=== PATIENT | male | born 1955 | race Caucasian/White ===

== ENCOUNTER 2020-08-09 10:39 | Inpatient (IN) | payer MEDICARE ==
[~2020-08-09] VITALS: Ht 177.8 cm; Wt 110.5 kg
[2020-08-09 12:55] LABS: Basophils # (auto) 0 10 ^3/uL (0-0.2); Basophils % (auto) 0.3 % (0.0-2.0); Eosinophils # (auto) 0 10 ^3/uL (0-0.8); Eosinophils % (auto) 0.2 % (0.0-7.0); Hematocrit 51.3 % (41.0-53.0); Hemoglobin 17.4 g/dL (13.5-17.5); Lymphocytes # (auto) 0.5 10 ^3/uL (0.4-5.4); Lymphocytes % (auto) 8.5 % (10.0-50.0); Mean Corpuscular Hemoglobin 31.3 pg (28.0-32.0); Mean Corpuscular Hgb Conc. 33.9 g/dL (32.0-36.0); Mean Corpuscular Volume 92.4 fL (80.0-100.0); Monocytes # (auto) 0.6 10 ^3/uL (0-1.3); Neutrophils # (auto) 4.5 10 ^3/uL (1.6-8.6); Nucleated Red Blood Cells % 0.4 %; Platelet Count (auto) 275 10^3/uL (140-450); Red Blood Cells 5.55 10^6/uL (4.5-5.90); White Blood Cell 5.6 10^3/uL (4.4-10.8)
[2020-08-09 13:12] LABS: Alanine Aminotransferase 69 U/L (16-61); Albumin 2.4 g/dL (3.4-5.0); Anion Gap 6 (5-15); Aspartate Aminotransferase 74 U/L (15-37); Blood Urea Nitrogen 30 mg/dL (7-18); Calcium 8.5 mg/dL (8.5-10.1); Carbon Dioxide 25 mmol/L (21-32); Chloride 104 mmol/L (98-107); GFR African American 53 mL/min; GFR Non-African American 44 mL/min; Glucose 102 mg/dL (74-106); Lipase 187 U/L (73-393); Potassium 4.2 mmol/L (3.5-5.1); Sodium 135 mmol/L (136-145)
[2020-08-09 13:17] LABS: Alkaline Phosphatase 77 U/L (45-117); Bilirubin, Total 0.5 mg/dL (0.2-1.0); Total Protein 7.3 g/dL (6.4-8.2)
[2020-08-09] MEDS ORDERED: NITROGLYCERIN 0.4 MG SL TAB SL PRN (17:00)
[2020-08-09] MEDS ORDERED: HYDROcodone-ACET 5/325MG TAB PO PRN (17:00)
[2020-08-09] MEDS ORDERED: ONDANSETRON HCL 4 MG/2 ML VIAL IV PRN (17:00)
[2020-08-09] MEDS ORDERED: ACETAMINOPHEN 500 MG TAB PO PRN ×2 (17:00)
[2020-08-09] MEDS ORDERED: ALBUTEROL SULF HFA 90MCG INH 200DOSE IN PRN (17:00)
[2020-08-09] MEDS ORDERED: REMDESIVIR PER PHARMACY 0 ML IV SCH (17:00)
[2020-08-09] MEDS ORDERED: MORPHINE SULF INJ 2 MG/ML SYRINGE 1ML IV PRN ×2 (17:00)
[2020-08-09] MEDS ORDERED: PANTOPRAZOLE 40 MG/10 ML VIAL INJ IV ONE (17:30)
[2020-08-09] MEDS: SODIUM CHLORIDE 0.9% 1,000 ML IV SCH (17:30)
[2020-08-09 18:32] LABS: CRP High Sensitivity 7.33 mg/dL (< 0.3)
[2020-08-09] MEDS ORDERED: CARV3.1240 PO (18:58)
--- NOTE | 2020-08-09 20:14 | NUR ---
Respiratory note: RESP MED HELD AT THIS TIME ,WAITING FOR COVID RESULT
[2020-08-09] MEDS: BUDESONIDE (INHALATION) 180 MCG IH IN SCH (21:11)
[2020-08-09] MEDS: cefTRIAXone 1GM/50ML D5W 50 ML IV SCH (23:49)
[2020-08-09] MEDS: SUCRALFATE 1 GM/10 ML ORAL SUSP PO SCH (23:49)
[2020-08-09] MEDS: CARVEDILOL 3.125 MG TAB PO SCH (23:50)
[2020-08-09] MEDS: ENOXAPARIN SOD 40 MG/0.4 ML SYRINGE SC SCH (23:50)
[2020-08-10 02:30] LABS: Urine Bacteria FEW /hpf (None Seen); Urine Blood TRACE /uL (Negative); Urine Hyaline Cast MANY /lpf (0 - 2); Urine Mucus FEW (None Seen); Urine WBC 8 /hpf (0 - 3)
[2020-08-10] MEDS: SODIUM CHLORIDE 0.9% 1,000 ML IV SCH (03:00)
[2020-08-10 04:49] VITALS: BP 105/64
[2020-08-10] MEDS: SUCRALFATE 1 GM/10 ML ORAL SUSP PO SCH ×4 (06:37→22:23)
--- NOTE | 2020-08-10 07:30 | NUR ---
ROUNDS PT SITTING IN BED AWAKE A&O. RESPIRATIONS EQUAL AND UNLABORED. PT ON 3LNC. PT C/O PAIN TO UPPER ABD, REQUESTING NO MEDICATION. PT REQUESTING TO BE LOCKED FORM IV AND AMBULATED INDEPENDENTLY TO RESTROOM. WILL CONTINUE TO MONITOR
[2020-08-10 08:32] LABS: Basophils # (auto) 0 10 ^3/uL (0-0.2); Basophils % (auto) 0.3 % (0.0-2.0); Eosinophils # (auto) 0 10 ^3/uL (0-0.8); Hematocrit 45.4 % (41.0-53.0); Hemoglobin 15.2 g/dL (13.5-17.5); Lymphocytes # (auto) 0.7 10 ^3/uL (0.4-5.4); Lymphocytes % (auto) 15.9 % (10.0-50.0); Mean Corpuscular Hemoglobin 30.9 pg (28.0-32.0); Mean Corpuscular Hgb Conc. 33.5 g/dL (32.0-36.0); Mean Corpuscular Volume 92.1 fL (80.0-100.0); Monocytes # (auto) 0.7 10 ^3/uL (0-1.3); Monocytes % (auto) 16.4 % (0.0-12.0); Neutrophils # (auto) 2.9 10 ^3/uL (1.6-8.6); Neutrophils % (auto) 66.4 % (37.0-80.0); Nucleated Red Blood Cells % 0.1 %; Platelet Count (auto) 241 10^3/uL (140-450); Red Blood Cells 4.93 10^6/uL (4.5-5.90); Red Cell Distribution Width 13.9 % (11.8-14.3); White Blood Cell 4.4 10^3/uL (4.4-10.8)
[2020-08-10 08:57] LABS: Albumin 2.1 g/dL (3.4-5.0); BUN/Creatinine Ratio 23.9; Calcium 8.4 mg/dL (8.5-10.1); Potassium 3.9 mmol/L (3.5-5.1)
[2020-08-10 08:59] LABS: Bilirubin, Total 0.4 mg/dL (0.2-1.0); Total Protein 6.2 g/dL (6.4-8.2)
[2020-08-10 09:00] VITALS: BP 116/74
[2020-08-10] MEDS ORDERED: AZITHROMYCIN 500MG/D5WorNS 250ml IV SCH (10:00)
[2020-08-10] MEDS ORDERED: FAMOTIDINE 20 MG TAB PO SCH (10:00)
[2020-08-10] MEDS: BUDESONIDE (INHALATION) 180 MCG IH IN SCH ×2 (10:00→22:00)
[2020-08-10] MEDS: CARVEDILOL 3.125 MG TAB PO SCH ×2 (10:00→22:23)
[2020-08-10] MEDS: CHOLECALCIFEROL (VITD3) 2,000 UNIT CAP PO SCH (10:00)
[2020-08-10] MEDS: DexAMETHasone SOD PHOS 10MG/1ML VIAL INJ IV SCH (10:00)
--- NOTE | 2020-08-10 10:30 | NUR ---
DR BARRIENTOS AT BEDSIDE
[2020-08-10] MEDS: ZINC SULFATE 220mg CAP or TAB PO SCH (10:54)
[2020-08-10] MEDS: ASCORBIC ACID 1,000 MG TAB PO SCH (10:54)
[2020-08-10] MEDS: PANTOPRAZOLE 40 MG/10 ML VIAL INJ IV SCH (10:54)
[2020-08-10] MEDS: cefTRIAXone 1GM/50ML D5W 50 ML IV SCH (10:55)
--- NOTE | 2020-08-10 12:08 | NUR ---
DR BLANKENSHIP CALLED TO ASSESS PT STATES SHE WILL FOLLOW UP WITH PT OUT PT AFTER COVID SUBSIDES.
[2020-08-10 13:00] VITALS: BP 122/76
[2020-08-10] MEDS ORDERED: REMDESIVIR 200 MG in NS 210ml LOADING DOSE ADULT IV ONE (15:00)
[2020-08-10] MEDS ORDERED: ENOXAPARIN SOD 60 MG/0.6 ML SYRINGE SC ONE (15:45)
[2020-08-10] MEDS: AZITHROMYCIN 250 MG TAB PO SCH (16:07)
[2020-08-10] MEDS: ENOXAPARIN SOD 40 MG/0.4 ML SYRINGE SC SCH ×2 (16:08→22:23)
--- NOTE | 2020-08-10 16:20 | NUR ---
BLOOD PRESSURE PRE REMDESIVIR INFUSION AT 1600 141/81 BLOOD PRESSURE AT 1620 147/86
[2020-08-10 17:00] VITALS: BP 132/84
--- NOTE | 2020-08-10 17:24 | NUR ---
PT REQUEST TO HOLD OFF ON PLASMA INFUSION UNTIL HE CAN SPEAK TO THE DOCTOR TOMORROW REGARDING COVERAGE. PT NOT WANTING TO INCUR EXTREME COST AND THIS RN UNABLE TO VALIDATE COVERAGE OR COSTS. WILL NOTIFY BLOOD BANK TO NOT THAW AT THIS TIME.
--- NOTE | 2020-08-10 18:30 | NUR ---
PT ON THE PHONE WITH FAMILY
--- NOTE | 2020-08-10 20:12 | NUR ---
STATUS PT RESTING WITH EYES CLOSED, RESPIRATIONS EQUAL AND UNLABORED ON 3L NC, WITH SATURATIONS IN MID 90S. WILL CONTINUE TO MONITOR
[2020-08-10 22:00] VITALS: BP_SYST 135; BP_SYST 139; BP_DIAS 80; BP_DIAS 87
--- NOTE | 2020-08-11 03:20 | NUR ---
REPORT GIVEN TO SLIME GRACE FOR CONTINUED POC
--- NOTE | 2020-08-11 03:20 | NUR ---
ASSUMED CARE OF PATIENT REPORT RECEIVED FROM LESLY BOONE. PATIENT CURRENTLY RESTING WITH EVEN RESPIRATIONS AND NO SIGNS OF DISTRESS NOTED AT THIS TIME. BED IN LOWEST POSITION WITH SIDERAILS UP X2 AND BED LOCKED WITH CALL LIGHT IN REACH.
[2020-08-11 05:00] VITALS: BP 143/90
--- NOTE | 2020-08-11 07:00 | NUR ---
Opening Shift Note Assumed care of patient, awake and alert. Patient is on 3L of O2 via nasal cannula and saturating at 96%. Left AC 18 G IV clean, dry, and patent with no signs of swelling or redness. No S/S of distress or pain. Instructed on POC and to call for assist PRN, will continue to monitor for changes Q1hr and PRN.
[2020-08-11] MEDS: SUCRALFATE 1 GM/10 ML ORAL SUSP PO SCH ×4 (07:06→22:05)
[2020-08-11 09:00] VITALS: BP 144/89
[2020-08-11] MEDS: PANTOPRAZOLE 40 MG/10 ML VIAL INJ IV SCH (09:17)
[2020-08-11] MEDS: ENOXAPARIN SOD 40 MG/0.4 ML SYRINGE SC SCH ×2 (09:17→22:05)
[2020-08-11] MEDS: cefTRIAXone 1GM/50ML D5W 50 ML IV SCH (09:17)
[2020-08-11] MEDS: ASCORBIC ACID 1,000 MG TAB PO SCH (09:18)
[2020-08-11] MEDS: CHOLECALCIFEROL (VITD3) 2,000 UNIT CAP PO SCH (09:18)
[2020-08-11] MEDS: AZITHROMYCIN 250 MG TAB PO SCH (09:18)
[2020-08-11] MEDS: CARVEDILOL 3.125 MG TAB PO SCH ×2 (09:19→22:07)
[2020-08-11] MEDS: DexAMETHasone SOD PHOS 10MG/1ML VIAL INJ IV SCH (09:19)
[2020-08-11] MEDS: ZINC SULFATE 220mg CAP or TAB PO SCH (09:19)
[2020-08-11 10:37] LABS: Albumin 2.1 g/dL (3.4-5.0); Potassium 4.1 mmol/L (3.5-5.1)
[2020-08-11 10:43] LABS: BUN/Creatinine Ratio 21.7; Bilirubin, Total 0.4 mg/dL (0.2-1.0); Total Protein 6.5 g/dL (6.4-8.2)
[2020-08-11 11:12] LABS: Hepatitis B Surface Antibody Negative
[2020-08-11 11:49] LABS: Hepatitis A Total Antibody Negative
--- NOTE | 2020-08-11 11:50 | NUR ---
DR. BARRIENTOS AT BEDSIDE MD at bedside. Reviewed plan of care with patient.
--- NOTE | 2020-08-11 11:58 | NUR ---
PATIENT REQUESTING TO KNOW LEDESMA OF PLASMA RN PLACED CALL TO BILLING AND SPOKE WITH MARY. ACCORDING TO MARY PATIENT WILL BE COVERED FOR PLASMA ADMINISTRATION FROM INSURANCE. PATIENT UPDATED ON COVERAGE. PATIENT STATES "OKAY THAT IS GOOD BUT I DONT THINK I WANT THE PLASMA" PATIENT EDUCATED ON BENEFITS OF PLASMA. PATIENT VERBALIZED UNDERSTANDING.
[2020-08-11 13:00] VITALS: BP 136/81
[2020-08-11 13:18] LABS: Hepatitis B Surface Antigen Negative (Negative)
[2020-08-11 13:21] LABS: Hepatitis C Antibody Negative (Negative)
[2020-08-11 13:23] LABS: Hepatitis B Core Total AB Negative
[2020-08-11] MEDS: REMDESIVIR 100 MG in SODIUM CHL 0.9% 250 ML IV SCH (15:45)
--- NOTE | 2020-08-11 16:10 | NUR ---
IV insertion IV access obtained, via clean sterile technique by inserting 20 gauge catheter at left wrist after 1 attempt(s). IV secured properly. No trauma to site. Patient tolerated well. IV removal IV DC'd with clean sterile technique, catheter fully intact. Pressure dressing applied to site. Patient tolerated well.
--- NOTE | 2020-08-11 16:30 | NUR ---
REMDESIVIR Pre Remdesivir vitals: HR: 72 o2: 97% RR: 16 T: 97.5 BP: 131/75 15 minute vitals HR: 66 O2: 97% RR: 16 T: 97.2 BP:127/84
[2020-08-11 17:00] VITALS: BP 127/84
[2020-08-11] MEDS ORDERED: FUROSEMIDE 40 MG TAB PO ONE (18:30)
--- NOTE | 2020-08-11 18:32 | NUR ---
POST REMDESIVIR VITALS HR: 73 O2: 96% RR:18 T: 98.6 BP: 129/80
--- NOTE | 2020-08-11 19:30 | NUR ---
Opening Shift Note Received report from jostin Rushing RN. Assumed care of patient, awake and alert. No S/S of distress but SOB with ambulation. On 3LNC saturating at 96%. Instructed on POC and to call for assist PRN, will continue to monitor for changes Q1hr and PRN. Bed placed in lowest position, and call light within reach.
[2020-08-11 21:27] VITALS: BP 127/72
[2020-08-11] MEDS: BUDESONIDE (INHALATION) 180 MCG IH IN SCH (21:59)
[2020-08-11] MEDS: DOXYCYCLINE 100 MG TAB/CAP PO SCH (22:06)
[2020-08-12 05:00] VITALS: BP 125/67
[2020-08-12] MEDS: SUCRALFATE 1 GM/10 ML ORAL SUSP PO SCH ×4 (06:19→22:35)
--- NOTE | 2020-08-12 07:01 | NUR ---
Patient is resting in bed alert and awake, no distress noted, on 3LNC saturating 98%. Patient denies pain.
[2020-08-12 08:00] VITALS: BP 112/69
--- NOTE | 2020-08-12 08:00 | NUR ---
Received pt resting in bed, call light within reach, no pain noticed or reported at this time, Influenza A and B done and sent to lab.
[2020-08-12 08:11] LABS: Potassium 4.1 mmol/L (3.5-5.1)
[2020-08-12 08:16] LABS: Albumin 2.1 g/dL (3.4-5.0); Calcium 8.9 mg/dL (8.5-10.1)
[2020-08-12 08:18] LABS: Bilirubin, Total 0.4 mg/dL (0.2-1.0); Total Protein 6.3 g/dL (6.4-8.2)
[2020-08-12] MEDS: PANTOPRAZOLE 40 MG/10 ML VIAL INJ IV SCH (09:26)
[2020-08-12] MEDS: DexAMETHasone SOD PHOS 10MG/1ML VIAL INJ IV SCH (09:26)
[2020-08-12] MEDS: cefTRIAXone 1GM/50ML D5W 50 ML IV SCH (09:26)
[2020-08-12] MEDS: ZINC SULFATE 220mg CAP or TAB PO SCH (09:26)
[2020-08-12] MEDS: AZITHROMYCIN 250 MG TAB PO SCH (09:27)
[2020-08-12] MEDS: DOXYCYCLINE 100 MG TAB/CAP PO SCH ×2 (09:27→22:38)
[2020-08-12] MEDS: ENOXAPARIN SOD 40 MG/0.4 ML SYRINGE SC SCH ×2 (09:27→22:39)
[2020-08-12] MEDS: ASCORBIC ACID 1,000 MG TAB PO SCH (09:27)
[2020-08-12] MEDS: CHOLECALCIFEROL (VITD3) 2,000 UNIT CAP PO SCH (09:27)
[2020-08-12] MEDS: FUROSEMIDE 40 MG TAB PO SCH (09:46)
[2020-08-12] MEDS: CARVEDILOL 3.125 MG TAB PO SCH ×2 (09:46→22:36)
[2020-08-12 12:00] VITALS: BP 127/80
--- NOTE | 2020-08-12 12:27 | NUR ---
Assessment Patient is a 64 year old male, who is alert and oriented. Patient cognitive abilities are intact. Patient stated that prior to being admitted to [facility], he can do all ADL's and ambulate independently. Patient stated that he lives with his Monty ([phone]), and he has plans to return home post discharge. Patient stated that he is retired and receives social security as income. Patient stated that his is his support system, patient stated that he will need transportation post discharge. Patient is receptive to receive Advance Directive forms. Discharge planning: Patient will return home post discharge, patient will follow up care with his PCP post discharge. SW will provide Advance Directive prior to discharge. There are no additional discharge needs to address at the moment. Addendum: 08/12/20 at 1235 by ANISH BACA Amended: Links added.
[2020-08-12] MEDS: REMDESIVIR 100 MG in SODIUM CHL 0.9% 250 ML IV SCH (15:37)
[2020-08-12 17:00] VITALS: BP 118/71
--- NOTE | 2020-08-12 17:12 | NUR ---
Remdesivir At 1530 started Remdesivir, v/s taken, BP 118/71, HR 70, at 1545 vs retaken, BP 128/81, BP 71, at 1645 medication treatment finished, v/s taken 131/82, BP 71, pt tolerated medication treatment well.
--- NOTE | 2020-08-12 19:25 | NUR ---
Opening Shift Note Received report from jostin Murguia RN. Assumed care of patient, awake and alert. No S/S of distress/SOB or pain. On 2LNC saturating at 95%. Instructed on POC and to call for assist PRN, will continue to monitor for changes Q1hr and PRN. Bed placed in lowest position and call light within reach.
--- NOTE | 2020-08-12 20:00 | NUR ---
Noted patient blowing into the incentive spirometer. Educated patient on how to use the instrument and demonstrated/verbalized understanding. Will monitor
[2020-08-12] MEDS: BUDESONIDE (INHALATION) 180 MCG IH IN SCH (21:30)
[2020-08-12 22:00] VITALS: BP 117/74
[2020-08-13] VITALS (7 sets, daily range): BP systolic 113–127; BP diastolic 64–87
--- NOTE | 2020-08-13 04:50 | NUR ---
Patient is resting in bed with eyes closed, no distress noted, on 2LNC saturating at 96%. Patient denies pain.
[2020-08-13] MEDS: SUCRALFATE 1 GM/10 ML ORAL SUSP PO SCH ×4 (06:44→22:12)
--- NOTE | 2020-08-13 07:00 | NUR ---
Opening Shift Note Assumed care of patient, awake and alert. Bed in lowest position side rails up x2 and call light within reach. Patient is on 2L of O2 via nasal cannula and saturating at 95%. Left wrist 20 G IV clean, dry, and patent with no signs of redness or swelling. No S/S of distress/SOB or pain. Instructed on POC and to call for assist PRN, will continue to monitor for changes Q1hr and PRN.
[2020-08-13] MEDS: cefTRIAXone 1GM/50ML D5W 50 ML IV SCH (08:43)
[2020-08-13] MEDS: ZINC SULFATE 220mg CAP or TAB PO SCH (08:43)
[2020-08-13] MEDS: ASCORBIC ACID 1,000 MG TAB PO SCH (08:44)
[2020-08-13] MEDS: AZITHROMYCIN 250 MG TAB PO SCH (08:45)
[2020-08-13] MEDS: CHOLECALCIFEROL (VITD3) 2,000 UNIT CAP PO SCH (08:45)
[2020-08-13] MEDS: CARVEDILOL 3.125 MG TAB PO SCH ×2 (08:46→22:13)
[2020-08-13] MEDS: FUROSEMIDE 40 MG TAB PO SCH (08:46)
[2020-08-13] MEDS: DOXYCYCLINE 100 MG TAB/CAP PO SCH ×2 (08:48→22:11)
[2020-08-13] MEDS: PANTOPRAZOLE 40 MG/10 ML VIAL INJ IV SCH (08:49)
[2020-08-13] MEDS: ENOXAPARIN SOD 40 MG/0.4 ML SYRINGE SC SCH ×2 (08:49→22:12)
[2020-08-13] MEDS: DexAMETHasone SOD PHOS 10MG/1ML VIAL INJ IV SCH (08:49)
[2020-08-13] MEDS: BUDESONIDE (INHALATION) 180 MCG IH IN SCH ×2 (10:00→22:00)
[2020-08-13 10:07] LABS: Albumin 2.5 g/dL (3.4-5.0); Calcium 9.2 mg/dL (8.5-10.1); Potassium 3.8 mmol/L (3.5-5.1)
[2020-08-13 10:10] LABS: BUN/Creatinine Ratio 20.2; Bilirubin, Total 0.5 mg/dL (0.2-1.0)
--- NOTE | 2020-08-13 12:05 | NUR ---
DR. BARRIENTOS AT BEDSIDE MD reviewed POC with patient. Received orders to titrate patient down to room air. Will assess patient's tolerance.
--- NOTE | 2020-08-13 14:48 | NUR ---
Nutrition Assessment Notes Please refer to link for full assessment notes. Est Energy needs: 3987-5196 kcals (14-18 kcal/kgBW) Est Protein needs: 112-123 gms/day (1.0-1.1 gm/kgBW) Will continue to monitor and reassess prn. Addendum: 08/13/20 at [address] Amended: Links added.
[2020-08-13] MEDS: REMDESIVIR 100 MG in SODIUM CHL 0.9% 250 ML IV SCH (15:44)
--- NOTE | 2020-08-13 16:00 | NUR ---
REMDESIVIR Pre Remdesivir vitals BP: 102/68 HR: 71 O2: 94% RA RR: 16 T: 98.8 15 minute vitals BP: 122/76 HR: 67 O2: 94% RA RR: 14 T: 98.3
--- NOTE | 2020-08-13 17:22 | NUR ---
POST REMDESIVIR VITALS BP: 124/73 HR: 70 O2: 92% RA RR: 18
--- NOTE | 2020-08-13 19:30 | NUR ---
Opening Shift Note Received report from jostin Rushing RN. Assumed care of patient, awake and alert resting in bed. On 2LNC saturating at 96%. No S/S of distress/SOB or pain. Instructed on POC and to call for assist PRN, will continue to monitor for changes Q1hr and PRN. Bed placed in lowest position and call light within reach.
--- NOTE | 2020-08-14 04:04 | NUR ---
Patient is resting in bed sleeping with eyes closed, no distress noted.
[2020-08-14 05:00] VITALS: BP 106/70
[2020-08-14] MEDS: SUCRALFATE 1 GM/10 ML ORAL SUSP PO SCH ×2 (06:42→11:44)
[2020-08-14] MEDS: DexAMETHasone SOD PHOS 10MG/1ML VIAL INJ IV SCH (08:54)
[2020-08-14] MEDS: cefTRIAXone 1GM/50ML D5W 50 ML IV SCH (08:54)
[2020-08-14] MEDS: ENOXAPARIN SOD 40 MG/0.4 ML SYRINGE SC SCH (08:54)
[2020-08-14] MEDS: PANTOPRAZOLE 40 MG/10 ML VIAL INJ IV SCH (08:55)
[2020-08-14] MEDS: CHOLECALCIFEROL (VITD3) 2,000 UNIT CAP PO SCH (08:55)
[2020-08-14] MEDS: AZITHROMYCIN 250 MG TAB PO SCH (08:56)
[2020-08-14] MEDS: ZINC SULFATE 220mg CAP or TAB PO SCH (08:57)
[2020-08-14] MEDS: FUROSEMIDE 40 MG TAB PO SCH (08:57)
[2020-08-14] MEDS: ASCORBIC ACID 1,000 MG TAB PO SCH (08:57)
[2020-08-14] MEDS: DOXYCYCLINE 100 MG TAB/CAP PO SCH (08:58)
[2020-08-14] MEDS: CARVEDILOL 3.125 MG TAB PO SCH (08:59)
[2020-08-14 09:00] VITALS: BP 132/80
[2020-08-14] MEDS: BUDESONIDE (INHALATION) 180 MCG IH IN SCH (10:00)
--- NOTE | 2020-08-14 10:59 | NUR ---
Opening Shift Note Assumed care of patient, awake and alert. Patient is on room air and saturating at 95%. Bed in lowest position, side rails up x2, and call light within reach. Left wrist 20 G IV clean, dry, and patent with no signs of redness or swelling. No S/S of distress/SOB or pain. Instructed on POC and to call for assist PRN, will continue to monitor for changes Q1hr and PRN.
--- NOTE | 2020-08-14 12:05 | NUR ---
AT BEDSIDE. at bedside. Reviewed plan of care with patient. No new orders received at this time.
[2020-08-14] MEDS ORDERED: METH4PAK PO (12:51)
[2020-08-14] MEDS ORDERED: PANT40TA2 PO (12:52)
[2020-08-14] MEDS ORDERED: DOXY-111 PO (12:52)
[2020-08-14] MEDS ORDERED: CHOL20007 PO (12:53)
[2020-08-14 13:00] VITALS: BP 116/65
[2020-08-14 14:29] VITALS: BP 116/65
[2020-08-14] MEDS: REMDESIVIR 100 MG in SODIUM CHL 0.9% 250 ML IV SCH (15:00)
--- NOTE | 2020-08-14 16:58 | NUR ---
Discharge instructions given as ordered. Encourage to follow up with PMD as instructed. All questions and concerns addressed. Patient verbalized understanding. Medication reconciliation form completed and copy given to patient. IV removed with catheter intact, pressure dressing applied, Telemetry unit returned to ICU. Patient taken to vehicle via wheelchair with all personal belongings, COVID protocol initiated accompanied by staff and family member. No distress noted at time of departure.
== END 2020-08-14 16:56 | disposition home or self-care (01) | DRG 871 ==
LOC: ER 10:39 → EDBD 10:39 → TELE 17:05 → TELE-EAST 08-10 04:04
PROVIDERS: ADMIT Nurse Practitioner Acute Care; ATTEND Internal Medicine Nephrology
PROC: XW033E5 Introduction of Remdesivir Anti-infective into Peripheral Vein, Percutaneous Approach, New Technology Group 5 (ICD-10-PCS; principal; 2020-08-10)
DX: A41.89 Other specified sepsis (principal); U07.1 COVID-19; J12.89 Other viral pneumonia; N17.0 Acute kidney failure with tubular necrosis; J96.01 Acute respiratory failure with hypoxia; D68.59 Other primary thrombophilia; R65.20 Severe sepsis without septic shock; E88.09 Other disorders of plasma-protein metabolism, not elsewhere classified; E86.0 Dehydration; I25.10 Atherosclerotic heart disease of native coronary artery without angina pectoris; E66.9 Obesity, unspecified; N18.30 Chronic kidney disease, stage 3 unspecified; I71.4 Abdominal aortic aneurysm, without rupture; I12.9 Hypertensive chronic kidney disease with stage 1 through stage 4 chronic kidney disease, or unspecified chronic kidney disease; Z95.5 Presence of coronary angioplasty implant and graft; Z68.35 Body mass index [BMI] 35.0-35.9, adult
CPT/HCPCS: 36415; 71045; 74176; 80053; 81001; 82728; 83615; 83690; 83735; 83880; 84484; 85025; 85379; 86141; 86704; 86706; 86708; 86803; 86850; 86900; 86901; 87040; 87340; 87426; 87804; 94640; C9113; G0378; J0696; J1100

== ENCOUNTER 2025-04-11 17:19 | Inpatient (IN) | payer MEDICARE, OTHER ==
[~2025-04-11] VITALS: Ht 172.7 cm; Wt 90.8 kg
[~2025-04-11 17:19] MED LIST: CARV3.1240 PO; CHOL20007 PO; DOXY-111 PO; METH4PAK PO; PANT40TA2 PO
--- NOTE | 2025-04-11 18:07 | ECG ---
[facility] Test Date: 2025-04-11 Test Time: 17:21:24 Pat Name: RACHAEL JOHNSON Department: [facility] ED Patient ID: [facility]-[id number] Room: 0287T Gender: M Single Needle Operator: MASSIEL : 1955 Requested By: BALA SLOAN Order Number: [id number] Reading MD: Jenaro Robledo Measurements Intervals [place] Rate: 82 P: 66 MA: 144 QRS: 31 QRSD: 114 T: 18 QT: 375 QTc: 438 Interpretive Statements Sinus tachycardia Ventricular trigeminy Inferior infarct, old Electronically Signed On 04-12-2025 18:23:35 PDT by Jenaro Robledo Please click the below link to view image of tracing.
--- NOTE | 2025-04-11 18:17 | ECG ---
[facility] Test Date: 2025-04-11 Test Time: 18:15:08 Pat Name: RACHAEL JOHNSON Department: [facility] ED Patient ID: [facility]-[id number] Room: 0287T Gender: M Stitcher Utility: MASSIEL : 1955 Requested By: BALA SLOAN Order Number: [id number] Reading MD: Jenaro Robledo Measurements Intervals [place] Rate: 83 P: 55 WV: 156 QRS: 73 QRSD: 102 T: 57 QT: 374 QTc: 440 Interpretive Statements Sinus rhythm Multiple premature complexes, vent & supraven Probable left atrial enlargement ST elevation, consider anterior injury Baseline wander in lead(s) II,III,aVL,aVF,V1,V2,V3,V4,V5,V6 Electronically Signed On 04-12-2025 18:23:35 PDT by Jenaro Robledo Please click the below link to view image of tracing.
[2025-04-11 18:31] LABS: Hematocrit 55.9 % (41.0-53.0); Hemoglobin 18.9 g/dL (13.5-17.5); Mean Corpuscular Hemoglobin 32.2 pg (28.0-32.0); Mean Corpuscular Volume 95.3 fL (80.0-100.0); Nucleated Red Blood Cells % 0.3 %
[2025-04-11 18:32] LABS: Chloride 105 mmol/L (98-107); Potassium 4.6 mmol/L (3.5-5.1); Sodium 139 mmol/L (136-145)
[2025-04-11 18:33] LABS: Anion Gap 9 (5-15); Calcium 9.6 mg/dL (8.7-10.4); Carbon Dioxide 25 mmol/L (20-31)
[2025-04-11 18:38] LABS: BUN/Creatinine Ratio 18.5 (10.0-20.0); Blood Urea Nitrogen 23 mg/dL (9-23)
[2025-04-11 18:42] LABS: Glucose 144 mg/dL (74-106)
[2025-04-11 18:58] VITALS: PULSE 89; RESP 16; O2SAT 98
[2025-04-11] MEDS: HEPARIN SODIUM (PORCINE) 5000 UNITS/ML 1ML VIAL IV ONE (19:13)
--- NOTE | 2025-04-11 19:20 | DVH ---
EXAM: XY CHEST XRAY 1 VIEW CLINICAL HISTORY: cp TECHNIQUE: Single AP view of the chest WID: COMPARISON: CHEST PORTABLE on DOS: 08/09/20 FINDINGS: Lines and tubes: None Chest: The heart size and pulmonary vasculature is within normal limits. No pleural effusion or pneumothorax. Linear opacities in the mid to lower lungs bilaterally. The osseous structures are grossly intact. IMPRESSION: Linear opacities in the mid to lower lungs bilaterally which could reflect areas of scarring and/or a telectasis.
[2025-04-11 19:28] LABS: INR 1.04 (0.9-1.15); Prothrombin Time 11.0 sec (9.3-11.8)
--- NOTE | 2025-04-11 19:43 | ED.PDOC ---
History of Present Illness HPI Comments 69-year-old male who is brought in by ambulance from private residence for chief complaint of nonradiating, sternal chest pain. Endorsement of progressively worsening pain following onset after lifting 12x 40 lb pet food bags on 04/09/2025. Pain is worse with exertion and movement and is a 7 to 8/[address] [facility], [facility]. Received 324 aspirin and 0.4 mg of nitroglycerin EN route by EMS staff, with temporary relief. Significant history of UT in 2011 with hospital admission and hypertension-on carvedilol. Patient denies having any shortness of breath, palpitations, dizziness, lightheadedness, nausea, vomiting, or further associated symptoms. REVIEW OF SYSTEMS: General: No fever, no chills, or fatigue HEENT: No sore throat, no earache, no congestion, no neck pain. Cardiac: Chest pain, No palpitations. Lungs: No shortness of breath, no cough. GI: No nausea, no vomiting, no diarrhea, no constipation, no abdominal pain : No dysuria, frequency, or urgency. No hematuria. Musculoskeletal: No joint pain , no joint swelling, no extremity edema. Skin: No rash, no itching. Neuro: No headache, no dizziness, no weakness PHYSICAL EXAM: General: Awake, alert and oriented. No acute distress. Skin: Skin in warm, dry and intact. Appropriate color for ethnicity. HEENT: The head is normocephalic and atraumatic. Conjunctivae are clear without exudates or hemorrhage. Sclera is non-icteric. EOM are intact. No signs of nystagmus. Eyelids are normal in appearance without swelling or lesions. Oral mucosa is pink and moist Neck: The neck is supple with normal range of motion. No JVD. Cardiac: Heart rate and rhythm are normal. No murmurs, gallops, or rubs are auscultated. Respiratory: No signs of respiratory distress. Lung sounds are clear in all lobes bilaterally without rales, rhonchi, or wheezes. Abdominal: Abdomen is soft, non-tender without distention, guarding or rigidity. Bowel sounds are present and normoactive in all four quadrants. Extremities: Upper and lower extremities are atraumatic in appearance without deformity or edema. Neurological: The patient is awake, alert and oriented to person, place, and time with normal speech. Speech is clear. There is no facial asymmetry. Psychiatric: Appropriate mood and affect. Good judgement and insight. Chief Complaint: Chest Pain Time Seen by MD: 18:45 Primary Care Provider: UNKNOWN Reviewed Notes: Nurses Notes, Investment Trader Notes, Medications, Allergies Allergies: Coded Allergies: NO KNOWN ALLERGIES (Unverified , 01/22/12) Home Meds Active Scripts Cholecalciferol (VITAMIN D3) 2,000 Unit Tab, 1 TAB PO DAILY for 30 Days, #30 TAB 2 Refills Prov:ANASTACIA BARRIENTOS MD 08/14/20 Doxycycline Monohydrate (Doxycycline Monohydrate) 100 Mg Tab, 100 MG PO BID for 8 Days, #16 TAB Prov:ANASTACIA BARRIENTOS MD 08/14/20 Pantoprazole Sodium Sesquihydr (Protonix) 40 Mg Tab, 40 MG PO DAILY for 30 Days, #30 TAB Prov:ANASTACIA BARRIENTOS MD 08/14/20 Methylprednisolone (Medrol Dosepak) 4 Mg Gregorio, 4 MG PO UD, #21 TAB UAD Prov:ANASTACIA BARRIENTOS MD 08/14/20 Reported Medications Carvedilol (Carvedilol) 3.125 Mg Tab, 3.125 MG PO UNKNOWN FREQUENCY, MG 08/09/20 Information Source: Patient, Emergency Med Personnel Mode of Arrival: EMS Severity: Moderate Timing: Days Duration: Since onset Prehospital treatment: 12 Lead EKG, ASA, Microbiology Technician, NTG Past Medical History PAST MEDICAL HISTORY: HTN, UT Past Medical History (Other): Obesity Hypoxic respiratory failure and sepsis secondary to COVID-19 induced pneumonia LATOYA Pulmonary nodule Abdominal aortic aneurysm Surgical History: PTCA (Left LAD) Family History Family History: Unknown Social History Smoker: Non-Smoker Alcohol: Denies ETOH Use Drugs: Denies Drug Use Lives In: Home Was a procedure done? Was a procedure done?: No EKG EKG #1: Pulse Rate (adult): 83 [place]: Normal Cardiac Rhythm: NSR Block: None Hypertrophy: None ST: Normal Comments Multiple PVCs EKG #2: Pulse Rate (adult): 82 [place]: Normal Cardiac Rhythm: NSR Block: None Hypertrophy: None ST: Normal EKG #3: Pulse Rate (adult): 84 [place]: Normal Cardiac Rhythm: NSR Block: None Hypertrophy: None ST: Normal Comments NO STEMIf Differential Dx Considerations may include: Differential diagnoses considered include acute ischemic coronary syndrome, aortic dissection, cardiac tamponade, mediastinitis, pulmonary embolus, pneumothorax, tension pneumothorax, esophageal rupture, coronary artery vasospasm, myocarditis, pericarditis, pneumonia, pulmonary edema, esophageal tear, pancreatitis, aortic stenosis, dilated cardiomyopathy, hypertrophic cardiomyopathy, mitral valve prolapse, malignancy, pleuritis, pneumomediastinum, primary pulmonary hypertension, cholecystitis, esophageal spasm, esophagus, gastritis, GERD, peptic ulcer disease, costochondritis, fibromyalgia, rib fracture, herpes zoster, radicular syndromes, thoracic outlet syndrome, somatization. X-Ray, Labs, Meds, VS Vital Signs Date Time Temp Pulse Resp B/P (MAP) Pulse Ox O2 Delivery O2 Flow Rate FiO2 04/11/25 22:08 85 160/98 04/11/25 22:00 79 23 160/98 (118) 96 04/11/25 20:26 84 04/11/25 20:21 80 192/116 04/11/25 20:19 192/116 04/11/25 20:15 84 04/11/25 20:00 89 15 192/116 (141) 96 04/11/25 19:43 82 04/11/25 18:58 98 Nasal Cannula* 2 28 04/11/25 18:58 89 16 98 Nasal Cannula* 2 28 04/11/25 18:34 96 04/11/25 18:15 83 04/11/25 18:00 98.8 93 15 170/92 (118) 96 98.8 04/11/25 17:21 82 04/11/25 17:20 98.6 88 14 180/68 100 98.6 Lab Test 04/11/25 21:16 04/11/25 20:49 04/11/25 19:14 04/11/25 18:42 Range/Units Troponin I High Sensitivity 5616 *H 4206 *H </=54 ng/L Triglycerides Level 79 < 150 mg/dL Cholesterol Level 246 H < 200 mg/dL LDL Cholesterol 189 H < 100 mg/dL HDL Cholesterol 62 H 40-59 mg/dL Prothrombin Time 11.1 9.3-11.8 sec Prothrombin Time INR 1.05 0.9-1.15 Activated Partial Thromboplast Time 52.4 H 24.5-34.5 SEC POC Glucose 163 H 70-106 mg/dl Test 04/11/25 18:15 Range/Units White Blood Count 10.1 4.4-10.8 10^3/uL Red Blood Count 5.86 4.5-5.90 10^6/uL Hemoglobin 18.9 H 13.5-17.5 g/dL Hematocrit 55.9 H 41.0-53.0 % Mean Corpuscular Volume 95.3 80.0-100.0 fL Mean Corpuscular Hemoglobin 32.2 H 28.0-32.0 pg Mean Corpuscular Hemoglobin Concent 33.8 32.0-36.0 g/dL Red Cell Distribution Width 13.7 11.8-14.3 % Platelet Count 182 140-450 10^3/uL Mean Platelet Volume 8.4 6.9-10.8 fL Neutrophils (%) (Auto) 80.3 H 37.0-80.0 % Lymphocytes (%) (Auto) 9.7 L 10.0-50.0 % Monocytes (%) (Auto) 8.7 0.0-12.0 % Eosinophils (%) (Auto) 0.8 0.0-7.0 % Basophils (%) (Auto) 0.5 0.0-2.0 % Neutrophils # (Auto) 8.1 1.6-8.6 10 ^3/uL Lymphocytes # (Auto) 1.0 0.4-5.4 10 ^3/uL Monocytes # (Auto) 0.9 0-1.3 10 ^3/uL Eosinophils # (Auto) 0.1 0-0.8 10 ^3/uL Basophils # (Auto) 0.1 0-0.2 10 ^3/uL Nucleated Red Blood Cells 0.3 % Prothrombin Time 11.0 9.3-11.8 sec Prothrombin Time INR 1.04 0.9-1.15 Sodium Level 139 136-145 mmol/L Potassium Level 4.6 3.5-5.1 mmol/L Chloride Level 105 98-107 mmol/L Carbon Dioxide Level 25 20-31 mmol/L Anion Gap 9 5-15 Blood Urea Nitrogen 23 9-23 mg/dL Creatinine 1.24 0.700-1.30 mg/dL Glomerular Filtration Rate Calc 62 >90 mL/min BUN/Creatinine Ratio 18.5 10.0-20.0 Serum Glucose 144 H 74-106 mg/dL Calcium Level 9.6 8.7-10.4 mg/dL Troponin I High Sensitivity 3553 *H </=54 ng/L B-Type Natriuretic Peptide 267.44 0-100 pg/mL Current Medications Medications (Trade) Dose Ordered Sig/Ana Route Start Time Stop Time Status Last Admin Heparin Sodium (Porcine) 5,000 units ONCE ONCE IV 04/11/25 19:00 04/11/25 19:01 DC 04/11/25 19:13 Heparin Sodium/ Dextrose 250 ml @ 10 mls/hr Q24H IV 04/11/25 19:00 04/11/25 21:59 Metoprolol Tartrate (Lopressor) 10 mg ONCE ONCE IV 04/11/25 20:15 04/11/25 20:16 DC 04/11/25 20:21 Fentanyl Citrate 25 mcg ONCE ONCE IV 04/11/25 20:15 04/11/25 20:16 DC 04/11/25 20:19 Ondansetron HCl (Zofran) 4 mg ONCE ONCE IV 04/11/25 20:15 04/11/25 20:16 DC 04/11/25 20:22 [place] [id number] Ph: [phone] DIAGNOSTIC IMAGING Diagnostic Imaging Report : [id number] Signed PATIENT: RACHAEL JOHNSON ACCT: [id number] UNIT: [id number] : 1955 LOC: ER ROOM / BED: / AGE / SEX: 69 / M ADM STATUS: REG ER SERVICE 180 ORDERING PHYSICIAN: MARILYN GUADALUPE MD PROCEDURE(s): CXR1 - CHEST XRAY 1 VIEW REASON: cp ORDER NUMBER(s): [id number], ACCESSION NUMBER(s): [id number] EXAM: XY CHEST XRAY 1 VIEW CLINICAL HISTORY: cp TECHNIQUE: Single AP view of the chest WID: COMPARISON: CHEST PORTABLE on DOS: 08/09/20 FINDINGS: Lines and tubes: None Chest: The heart size and pulmonary vasculature is within normal limits. No pleural effusion or pneumothorax. Linear opacities in the mid to lower lungs bilaterally. The osseous structures are grossly intact. IMPRESSION: Linear opacities in the mid to lower lungs bilaterally which could reflect areas of scarring and/or atelectasis. ATED BY: ELEN MARCUS MD DICTATED DATE/TIME: 04/11/251916 SIGNED BY: ELEN MARCUS MD SIGNED DATE/TIME: 04/11/251916 CC: Time of 1ST Reevaluation: 19:45 Reevaluation 1ST: Unchanged Patient Education/Counseling: Treatment, Other (Need for admission) Family Education/Counseling: No Family Present SEPSIS Sepsis Screen Date sepsis recognized/suspect: Apr 11, 2025 Time Sepsis recognized/suspect: 1857 Recent Procedure: No On Antibiotic Therapy: No Respiratory Rate >20: No Heart Rate >90: No Temp<36 C (96.8 F) or >38.3 C: No SBP <90 or MAP <65 mmHG: No New Acute Mental Status Change: No Is the patient on CPAP, BIPAP,: No Physician Orders Chest Xray 1 View (04/11/25 18:02) Vital Signs Q1HR (04/11/25 18:02) Platelet Monitoring (04/11/25 18:50) Heparin Per Standardized Proce (04/11/25 18:50) Discontinue All Im Injections (04/11/25 18:50) Heparin Drip/D5w 100units/Ml (04/11/25 19:00) Stat Ekg For Chest Pain (04/11/25 18:50) PTPTT (04/12/25 04:00) Heparin Per Pharmacy Protocol (04/11/25 22:26) Vital Signs Date Time Temp Pulse Resp B/P (MAP) Pulse Ox O2 Delivery O2 Flow Rate FiO2 04/11/25 22:08 85 160/98 04/11/25 22:00 79 23 160/98 (118) 96 04/11/25 20:26 84 04/11/25 20:21 80 192/116 04/11/25 20:19 192/116 04/11/25 20:15 84 04/11/25 20:00 89 15 192/116 (141) 96 04/11/25 19:43 82 04/11/25 18:58 98 Nasal Cannula* 2 28 04/11/25 18:58 89 16 98 Nasal Cannula* 2 28 04/11/25 18:34 96 04/11/25 18:15 83 04/11/25 18:00 98.8 93 15 170/92 (118) 96 98.8 04/11/25 17:21 82 04/11/25 17:20 98.6 88 14 180/68 100 98.6 Laboratory Tests Test 04/11/25 18:15 White Blood Count 10.1 10^3/uL (4.4-10.8) Medications Medications Dose Ordered Sig/Ana Route Start Time Stop Time Status Last Admin Dose Admin Fentanyl Citrate 25 mcg ONCE ONCE IV 04/11/25 20:15 04/11/25 20:16 DC 04/11/25 20:19 Heparin Sodium (Porcine) 5,000 units ONCE ONCE IV 04/11/25 19:00 04/11/25 19:01 DC 04/11/25 19:13 Heparin Sodium/ Dextrose 250 ml @ 10 mls/hr Q24H IV 04/11/25 19:00 04/11/25 21:59 Metoprolol Tartrate 10 mg ONCE ONCE IV 04/11/25 20:15 04/11/25 20:16 DC 04/11/25 20:21 Ondansetron HCl 4 mg ONCE ONCE IV 04/11/25 20:15 04/11/25 20:16 DC 04/11/25 20:22 Departure 1 Departure Time of Disposition: 19:44 Impression: Primary Impression: NSTEMI (non-ST elevated myocardial infarction) Disposition: ADMITTED INPATIENT Condition: Stable Comments MDM: [age] year old male presents to the emergency department with chest pain Initial evaluation included thorough history, physical examination and appropriate diagnostic testing. Based on the clinical presentation and diagnostic findings, the patient appears to have an NSTEMI Patient is stabilized in the ED. heparin bolus and drip initiated. Given the complexity of the case and need for further management patient is being admitted to the hospitalist service for further monitoring, treatment and evaluation. Risks, benefits and alternatives of admission and proposed interventions were discussed with the patient. Patient is in agreement with the plan. Extensive evaluation was performed in attempt to identify or rule out: (See differential diagnosis section) The following tests were ordered, and results were reviewed by me and discussed with patient: (See diagnostic results section) The following test were independently interpreted by me: EKG I reviewed and agreed with the following test results read by other providers: Chest x-ray I reviewed the following notes from the pt's past medical encounters: January 22, 2012 and August 09, 2020 encounters for ACS and community-acquired pneumonia, respectively Additional information was gathered from interviewing the following independent historians: EMS personnel Discussion of management or test interpretation with external physician/other qualified health special needs caregiver: N/A Addressed an acute or chronic illness that poses a threat to life or bodily function: NSTEMI Decision regarding hospitalization or escalation of hospital level of care: Risk and benefits of admission for further treatment of patient's condition was considered. Due to patient's current clinical condition, high risk of decline and poor outcome if discharged and need for further inpatient management and monitoring, patient will be admitted to the hospital. Drug therapy requiring intensive monitoring for toxicity: IV heparin Parenteral controlled substances: IV fentanyl Decision regarding elective major surgery with identified patient or procedure risk factors: N/A Decision regarding emergency major surgery: N/A Decision not to resuscitate or to de-escalate care because of poor prognosis: N/A Diagnosis or treatment significantly limited by social determinants of health: N/A Critical Care Note Critical Care Time?: Yes (35 min-critical care time only) Critical care comment: Due to a high probability of clinically significant, life threatening deterioration, the patient required my highest level of preparedness to intervene emergently and I personally spent this critical care time directly and personally managing the patient. This critical care time included obtaining a history; examining the patient; pulse oximetry; ordering and review of studies; arranging urgent treatment with development of a management plan; evaluation of patient's response to treatment; frequent reassessment; and, discussions with other providers. This critical care time was performed to assess and manage the high probability of imminent, life-threatening deterioration that could result in multi-organ failure. It was exclusive of separately billable procedures and treating other patients and teaching time. Please see my other sections and the rest of the note for further information on patient assessment and treatment. Stability Stability form required: No Heart Score Heart Score: Heart Score Response (Comments) Value History Highly Suspicious 2 EKG Normal 0 Age >65 2 Risk Factors >3 or Hx ASHD 2 Troponin >3 x's Normal limit 2 Total 8 I personally scribed for MARILYN GUADALUPE MD ([email or web address]) on 04/11/25 at 19:43. Electronically submitted by Daniel Dempsey ([email or web address]). I personally scribed for MARILYN GUADALUPE MD ([email or web address]) on 04/11/25 at 20:26. Electronically submitted by Daniel Dempsey ([email or web address]). MARILYN GUADALUPE MD Apr 11, 2025 19:43
--- NOTE | 2025-04-11 20:16 | ECG ---
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
[2025-04-11] MEDS: fentaNYL CITRATE 100 MCG/2 ML VL IV ONE (20:19)
[2025-04-11] MEDS: METOPROLOL TARTRATE 1MG/1ML-5ML VIAL IV ONE (20:21)
[2025-04-11] MEDS: ONDANSETRON HCL 4 MG/2 ML VIAL IV ONE (20:22)
[2025-04-11 21:24] LABS: INR 1.05 (0.9-1.15); Partial Thromboplastin Time 52.4 SEC (24.5-34.5); Prothrombin Time 11.1 sec (9.3-11.8)
[2025-04-11] MEDS: HEPARIN DRIP/D5W 100UNITS/ML 250 ML IV SCH (21:59)
[2025-04-11] MEDS ORDERED: MORPHINE SULFATE INJ 2 MG/ml SYRG IV PRN (22:45)
[2025-04-11] MEDS ORDERED: NITROGLYCERIN 0.4 MG SL TAB SL PRN (22:45)
[2025-04-11] MEDS: CARVEDILOL 3.125 MG TAB PO SCH (23:18)
--- NOTE | 2025-04-11 23:18 | DVHHPRES ---
History of Present Illness Resident Creating Document: CRUZ LOUISE RESIDENT History of Present Illness Raul Hdez is a 69-year-old male, with past medical history of hypertension and CAD (2 stents in 2011). The patient came to the ED via EMS with a chief complaint of 3 days of chest pain 6/10, continues, pressure-like, substernal, irradiated to both arms, associated with cold sweats. The patient reports he was lifting boxes when the pain started, resting improved the pain. Today, the pain exacerbates to 8/10, this prompt his visit to the ED. He has had this pain before in 2011 when the heart stents where placed at [facility]. The patient received 324mg of aspirin and nitroglycerin 0.4mg EN route by EMS staff, with partial relief. Patient denies palpitations, SOB, dizziness, lightheadedness, nausea, vomiting,or other symptoms. On initial evaluation in the ED his BP was 192/116mmHg, Troponins: 3,553, 4,306, 5616. The patient will be admitted for further evaluation and management. Cardiovascular: CAD (with 2 stents placed in 2011), HTN Past Surgical History: Other (back Pilocystc cyst removal. ) Family History: CAD, DM Smoke: Quit (smoke 1 pack per day for 14 years, quit 10 years ago.) Review of Systems Constitutional: No: Fever, Chills, Sweats, Weakness, Malaise, Other Eyes: No: Pain, Vision change, Conjunctivae inflammation, Eyelid inflammation, Other, Redness ENT: No: Ear pain, Ear discharge, Nose pain, Nose discharge, Nose congestion, Mouth pain, Mouth swelling, Throat pain, Throat swelling, Other Respiratory: No: Cough, Dry, Shortness of breath, SOB with excertion, Wheezing, Hemoptysis, Pleuritic Pain, Sputum, Wheezing, Other Cardiovascular: Chest Pain; No: Palpitations, Orthopnea, Paroxysmal Noc. Dyspnea, Edema, Lt Headedness, Other Gastrointestinal: No: Nausea, Vomiting, Abdominal Pain, Diarrhea, Constipation, Melena, Hematochezia, Other Genitourinary: No Dysuria, No Frequency, No Incontinence, No Hematuria, No Retention, No Other Musculoskeletal: No: other, neck pain, shoulder pain, arm pain, back pain, hand pain, leg pain, foot pain Skin: No: Rash, Lesions, Jaundice, Bruising, Other Neurological: No: Weakness, Numbness, Incoordination, Change in speech, Confusion, Seizures, Other Allergies: Coded Allergies: NO KNOWN ALLERGIES (Unverified , 01/22/12) Medications Current Medications Medications Dose Ordered Sig/Ana Route Start Time Stop Time Status Last Admin Dose Admin Heparin Sodium/ Dextrose 250 ml @ 10 mls/hr Q24H IV 04/11/25 19:00 04/11/25 21:59 10 MLS/HR Acetaminophen/ Hydrocodone Bitart 1 tab Q4HP PRN PO 04/11/25 22:45 Nitroglycerin 0.4 mg Q5MINP PRN SL 04/11/25 22:45 Morphine Sulfate 2 mg Q30M PRN IV 04/11/25 22:45 Aspirin 81 mg DAILY PO 04/12/25 10:00 Atorvastatin Calcium 80 mg DAILY PO 04/12/25 10:00 Carvedilol 3.125 mg DAILY PO 04/11/25 22:45 Exam Vital Signs Vital Signs Date Time Temp Pulse Resp B/P (MAP) Pulse Ox O2 Delivery O2 Flow Rate FiO2 04/11/25 22:08 85 160/98 04/11/25 22:00 23 96 04/11/25 18:58 Nasal Cannula* 2 28 04/11/25 18:00 98.8 98.8 General Appearance: Alert, Oriented X3, Cooperative, mild distress HEENT: Atraumatic, Mucous membr. moist/pink Respiratory: Clear to auscultation, Normal air movement Cardiovascular: Normal S1, Normal S2, Other (Irregular pulse. ) Abdominal: Normal bowel sounds, Soft, No tenderness, No hepatospenomegaly, No masses Extremities: No clubbing, No cyanosis, No edema, Normal pulses Skin: No rashes, No breakdown, No significant lesion Neuro: Normal gait, Normal speech, Strength at 5/5 X4 ext, Normal tone, Sensation intact Psych/Mental Status: Mental status NL, Mood NL Labs/Xrays Labs Test 04/11/25 21:16 04/11/25 20:49 04/11/25 18:42 04/11/25 18:15 Range/Units Troponin I High Sensitivity 5616 *H </=54 ng/L Prothrombin Time 11.1 9.3-11.8 sec Prothrombin Time INR 1.05 0.9-1.15 Activated Partial Thromboplast Time 52.4 H 24.5-34.5 SEC POC Glucose 163 H 70-106 mg/dl White Blood Count 10.1 4.4-10.8 10^3/uL Red Blood Count 5.86 4.5-5.90 10^6/uL Hemoglobin 18.9 H 13.5-17.5 g/dL Hematocrit 55.9 H 41.0-53.0 % Mean Corpuscular Volume 95.3 80.0-100.0 fL Mean Corpuscular Hemoglobin 32.2 H 28.0-32.0 pg Mean Corpuscular Hemoglobin Concent 33.8 32.0-36.0 g/dL Red Cell Distribution Width 13.7 11.8-14.3 % Platelet Count 182 140-450 10^3/uL Mean Platelet Volume 8.4 6.9-10.8 fL Neutrophils (%) (Auto) 80.3 H 37.0-80.0 % Lymphocytes (%) (Auto) 9.7 L 10.0-50.0 % Monocytes (%) (Auto) 8.7 0.0-12.0 % Eosinophils (%) (Auto) 0.8 0.0-7.0 % Basophils (%) (Auto) 0.5 0.0-2.0 % Neutrophils # (Auto) 8.1 1.6-8.6 10 ^3/uL Lymphocytes # (Auto) 1.0 0.4-5.4 10 ^3/uL Monocytes # (Auto) 0.9 0-1.3 10 ^3/uL Eosinophils # (Auto) 0.1 0-0.8 10 ^3/uL Basophils # (Auto) 0.1 0-0.2 10 ^3/uL Nucleated Red Blood Cells 0.3 % Sodium Level 139 136-145 mmol/L Potassium Level 4.6 3.5-5.1 mmol/L Chloride Level 105 98-107 mmol/L Carbon Dioxide Level 25 20-31 mmol/L Anion Gap 9 5-15 Blood Urea Nitrogen 23 9-23 mg/dL Creatinine 1.24 0.700-1.30 mg/dL Glomerular Filtration Rate Calc 62 >90 mL/min BUN/Creatinine Ratio 18.5 10.0-20.0 Serum Glucose 144 H 74-106 mg/dL Calcium Level 9.6 8.7-10.4 mg/dL B-Type Natriuretic Peptide 267.44 0-100 pg/mL SEPSIS Sepsis Screen Date sepsis recognized/suspect: Apr 11, 2025 Time Sepsis recognized/suspect: 1857 Recent Procedure: No On Antibiotic Therapy: No Respiratory Rate >20: No Heart Rate >90: No Temp<36 C (96.8 F) or >38.3 C: No SBP <90 or MAP <65 mmHG: No New Acute Mental Status Change: No Is the patient on CPAP, BIPAP,: No Physician Orders Chest Xray 1 View (04/11/25 18:02) Vital Signs Q1HR (04/11/25 18:02) Platelet Monitoring (04/11/25 18:50) Heparin Per Standardized Proce (04/11/25 18:50) Discontinue All Im Injections (04/11/25 18:50) Heparin Drip/D5w 100units/Ml (04/11/25 19:00) Stat Ekg For Chest Pain (04/11/25 18:50) PTPTT (04/12/25 04:00) Heparin Per Pharmacy Protocol (04/11/25 22:26) Admit (04/11/25 22:38) Code Status (04/11/25 22:38) Review Orders With Adm.Md (04/11/25 22:38) Bedside Commode (04/11/25 22:38) Notify Md Of Changes From Base (04/11/25 22:38) Advance Directive (04/11/25 22:38) Urinalysis (04/11/25 22:38) Patient Condition (04/11/25 22:38) Allergies (04/11/25 22:38) Hydrocodone-Acet 5/325mg Tab ([place] 5/32 (04/11/25 22:45) Nitroglycerin Sublingual (Ntrostat Subli (04/11/25 22:45) Morphine Sulfate Injection (04/11/25 22:45) Notify Md Of Changes From Base (04/11/25 22:38) Podiatric Physician For 24 Hours (04/11/25 22:38) Rhythm Strips Once Every Shift (04/11/25 22:38) Emergency Dysrhythmia Protocol (04/11/25 22:38) Aspirin Tablet (04/12/25 10:00) Atorvastatin (Lipitor) (04/12/25 10:00) Lisinopril Tablet (Zestril Tablet) (04/11/25 23:30) Carvedilol Tablet (Coreg Tablet) (04/11/25 22:45) Echo 2d Mode Cardiac Dop (04/11/25 22:38) Drug Screen (04/11/25 22:38) * Cardiology Consult (04/11/25 22:38) Cardiac Diet-2gna,Lofat,Lochol (04/12/25 Breakfast) Electrocardigram (04/11/25 22:38) Electrocardigram (04/11/25 23:38) Hemoglobin A1c (04/11/25 23:06) Vital Signs Date Time Temp Pulse Resp B/P (MAP) Pulse Ox O2 Delivery O2 Flow Rate FiO2 04/11/25 22:08 85 160/98 04/11/25 22:00 79 23 160/98 (118) 96 04/11/25 20:26 84 04/11/25 20:21 80 192/116 04/11/25 20:19 192/116 04/11/25 20:15 84 04/11/25 20:00 89 15 192/116 (141) 96 04/11/25 19:43 82 04/11/25 18:58 98 Nasal Cannula* 2 28 04/11/25 18:58 89 16 98 Nasal Cannula* 2 28 04/11/25 18:34 96 04/11/25 18:15 83 04/11/25 18:00 98.8 93 15 170/92 (118) 96 98.8 04/11/25 17:21 82 04/11/25 17:20 98.6 88 14 180/68 100 98.6 Laboratory Tests Test 04/11/25 18:15 White Blood Count 10.1 10^3/uL (4.4-10.8) Medications Medications Dose Ordered Sig/Ana Route Start Time Stop Time Status Last Admin Dose Admin Fentanyl Citrate 25 mcg ONCE ONCE IV 04/11/25 20:15 04/11/25 20:16 DC 04/11/25 20:19 25 MCG Heparin Sodium (Porcine) 5,000 units ONCE ONCE IV 04/11/25 19:00 04/11/25 19:01 DC 04/11/25 19:13 5,000 UNITS Heparin Sodium/ Dextrose 250 ml @ 10 mls/hr Q24H IV 04/11/25 19:00 04/11/25 21:59 10 MLS/HR Metoprolol Tartrate 10 mg ONCE ONCE IV 04/11/25 20:15 04/11/25 20:16 DC 04/11/25 20:21 10 MG Ondansetron HCl 4 mg ONCE ONCE IV 04/11/25 20:15 04/11/25 20:16 DC 04/11/25 20:22 4 MG Assessment/Plan Assessment/Plan #Acute chest pain, R/O ACS, # R/O NSTEMI Type I/ Type II EKG ECHOD2 Aspiring 81 mg po qd Morphine IV Atorvastatin 80mg po qd Cardiac consult #Hypertensive emergency Hydralazine 10 mg IV Carvedilol 3.125 mg po qd Lisinopril 10mg po qd #Hyperlipidemia Lipid panel Cholesterol Atorvastatin 80mg po qd #Obesity Life style changes counselling. Cardiac diet DVT prophylaxis, patient on Heparin PUD prophylaxis Protonics Goals of care discussed with the patient > 35 min. Discussed plan of care with Dr. Barber Code status: Full code PCP: Dr. Mathur Plan discussed with: Patient. the patient agrees with the admission plan. Plan discussed with: Patient My Orders Orders - CRUZ LOUISE RESIDENT Procedure Category Date Status Time Admit ADMIT 04/11/25 Transmitted 22:38 Code Status CODE 04/11/25 Transmitted 22:38 Review Orders With [facility] 04/11/25 In Process Adm. 22:38 Bedside Commode [facility] 04/11/25 In Process 22:38 Notify Of Changes [facility] 04/11/25 In Process From Base 22:38 Advance Directive [facility] 04/11/25 In Process 22:38 Urinalysis LAB 04/11/25 Logged 22:38 Patient Condition ORDERS 04/11/25 Transmitted 22:38 Allergies [facility] 04/11/25 In Process 22:38 Hydrocodone-Acet PHA 04/11/25 In Process 5/325mg Tab ([place] 22:45 Nitroglycerin PHA 04/11/25 In Process Sublingual (Ntrostat 22:45 Morphine Sulfate PHA 04/11/25 In Process Injection 22:45 Notify Of Changes [facility] 04/11/25 In Process From Base 22:38 Podiatric Physician For [facility] 04/11/25 In Process 24 Hours 22:38 Rhythm Strips Once [facility] 04/11/25 In Process Every Shift 22:38 Emergency Dysrhythmia KATI 04/11/25 In Process Protocol 22:38 Aspirin Tablet PHA 04/12/25 In Process 10:00 Atorvastatin (Lipitor) PHA 04/12/25 In Process 10:00 Lisinopril Tablet PHA 04/11/25 Logged (Zestril Tablet) 23:30 Carvedilol Tablet PHA 04/11/25 In Process (Coreg Tablet) 22:45 Echo 2d Mode Cardiac US 04/11/25 Logged DOP 22:38 Drug Screen LAB 04/11/25 Logged 22:38 * Cardiology Consult CONS 04/11/25 Transmitted 22:38 Cardiac DIET 04/12/25 Transmitted Diet-2gna,Lofat,Lochol Breakfast Electrocardigram EKG 04/11/25 Logged 22:38 Electrocardigram EKG 04/11/25 Logged 23:38 Hemoglobin A1c LAB 04/11/25 Logged 23:06 Date of Service: Apr 11, 2025 Billing Provider: SUNI BARBER MD Common Visit Codes: [id number] INP/OBS CARE (HIGH) Secondary Visit Codes: [id number] CARE PLAN 30 MINUTES CRUZ LOUISE RESIDENT Apr 11, 2025 23:18
[2025-04-11] MEDS: LISINOPRIL 5 MG TAB PO ONE (23:43)
[2025-04-12] VITALS (15 sets, daily range): BP systolic 107–153; BP diastolic 63–101; PULSE 72–96; RESP 12–18; TEMP 97.8–98; O2SAT 2–97
[2025-04-12] MEDS: HYDROcodone-ACET 5/325MG TAB PO PRN (01:23)
[2025-04-12 02:34] LABS: Triglycerides 79 mg/dL (< 150)
[2025-04-12 03:03] LABS: Cholesterol 246 mg/dL (< 200); HDL Cholesterol 62 mg/dL (40-59)
[2025-04-12 05:02] LABS: Hematocrit 53.3 % (41.0-53.0); Hemoglobin 18.4 g/dL (13.5-17.5); Mean Corpuscular Hemoglobin 32.6 pg (28.0-32.0); Mean Corpuscular Volume 94.7 fL (80.0-100.0); Nucleated Red Blood Cells % 0.4 %
[2025-04-12 05:15] LABS: Alanine Aminotransferase 35 U/L (7-40); Albumin 3.9 g/dL (3.2-4.8); Alkaline Phosphatase 93 U/L (46-116); Anion Gap 10 (5-15); BUN/Creatinine Ratio 21.2 (10.0-20.0); Bilirubin, Total 0.7 mg/dL (0.2-1.0); Blood Urea Nitrogen 18 mg/dL (9-23); Calcium 9.1 mg/dL (8.7-10.4); Carbon Dioxide 25 mmol/L (20-31); Chloride 105 mmol/L (98-107); Glucose 107 mg/dL (74-106); Potassium 3.9 mmol/L (3.5-5.1); Sodium 140 mmol/L (136-145); Total Protein 6.4 g/dL (5.7-8.2)
[2025-04-12 05:16] LABS: INR 1.02 (0.9-1.15); Partial Thromboplastin Time 39.6 SEC (24.5-34.5); Prothrombin Time 10.8 sec (9.3-11.8)
[2025-04-12] MEDS: HEPARIN DRIP/D5W 100UNITS/ML 250 ML IV SCH (06:13)
--- NOTE | 2025-04-12 08:25 | DVHINCON2 ---
Date Seen: Apr 12, 2025 Referring Physician MD Chito Reason for Consultation Chest pain History of Present Illness This is a pleasant 77-year-old man who presented to the emergency room via EMS with a chief complaint of chest pain since Saturday04/09/2025. The patient states on Saturday he was lifting 40 lb bags at the onset of chest pain symptoms for which he thought it was musculoskeletal pain and applied a lidocaine ointment to the chest wall area for relief. Describes the chest pain as substernal, radiating to bilateral arms, pressure-like, constant, and associated with shortness of breath. Given continuation of chest pain over the weekend he called 911. He was administered ASA 324 mg and unspecified NTG SL with mild relief of symptoms. At time of assessment he rated the chest pain as 3/10. He is currently on a heparin drip. Troponin levels are trending up with latest in the 5,000s ng/L. A 12 lead electrocardiogram revealed diffuse ST segment changes with associated Q-waves to inferior leads. Significant medical history includes multiple PTCAs including one PTCA to the LAD x 1 bare metal stent at [facility] and subsequent stage procedure of unknown vessels including 3DES at [facility] on 01/2012 without antiplatelet therapy since 2012, hypertension, dyslipidemia, remote history of tobacco use, and obesity. Past Medical History Past medical history reviewed. No other significant than mentioned above. Past Surgical History PTCAs x 2 including one bare metal stent to the LAD at [facility] and 3DES to unknown vessels at [facility], 01/2012 Polycystic cyst removal Bilateral eyes Family History: Patient reports no known family medical history. Family History Family history reviewed. Not significant for cardiovascular disease. Social History Denies the use of illicit drugs, alcohol, or tobacco use. Quit tobacco use in 1974 with a 5 pack-year history. Allergies: Coded Allergies: NO KNOWN ALLERGIES (Unverified , 01/22/12) Home Meds Active Scripts Cholecalciferol (VITAMIN D3) 2,000 Unit Tab, 1 TAB PO DAILY for 30 Days, #30 TAB 2 Refills Prov:ANASTACIA BARRIENTOS MD 08/14/20 Doxycycline Monohydrate (Doxycycline Monohydrate) 100 Mg Tab, 100 MG PO BID for 8 Days, #16 TAB Prov:ANASTACIA BARRIENTOS MD 08/14/20 Pantoprazole Sodium Sesquihydr (Protonix) 40 Mg Tab, 40 MG PO DAILY for 30 Days, #30 TAB Prov:ANASTACIA BARRIENTOS MD 08/14/20 Methylprednisolone (Medrol Dosepak) 4 Mg Gregorio, 4 MG PO UD, #21 TAB UAD Prov:ANASTACIA BARRIENTOS MD 08/14/20 Reported Medications Carvedilol (Carvedilol) 3.125 Mg Tab, 3.125 MG PO UNKNOWN FREQUENCY, MG 08/09/20 Home Meds Home medications reviewed. Current Medications Current Medications Medications (Trade) Dose Ordered Sig/Ana Route PRN Reason Start Time Stop Time Status Last Admin Heparin Sodium/ Dextrose 250 ml @ 10 mls/hr Q24H IV 04/11/25 19:00 04/12/25 05:34 DC 04/11/25 21:59 Acetaminophen/ Hydrocodone Bitart ([place] 5/325MG Tab) 1 tab Q4HP PRN PO MODERATE PAIN (4-6 PAIN SCALE) 04/11/25 22:45 04/12/25 01:23 Nitroglycerin (Ntrostat Sublingual) 0.4 mg Q5MINP PRN SL FOR CHEST PAIN 04/11/25 22:45 Morphine Sulfate 2 mg Q30M PRN IV FOR CHEST PAIN 04/11/25 22:45 Aspirin 81 mg DAILY PO 04/12/25 10:00 Atorvastatin Calcium (Lipitor) 80 mg DAILY PO 04/12/25 10:00 Carvedilol (Coreg Tablet) 3.125 mg DAILY PO 04/11/25 22:45 04/11/25 23:18 Pantoprazole Sodium (Protonix Tablet) 40 mg DAILY PO 04/12/25 10:00 Heparin Sodium/ Dextrose 250 ml @ 12 mls/hr [id number] IV 04/12/25 05:45 04/12/25 06:13 Review of Systems Constitutional: No symptom reported Ears, Nose, & Throat: No symptom reported Eyes: No symptom reported Neurological: No symptoms reported Pulmonary/Respiratory: No symptom reported Cardiovascular: Chest pain Gastrointestinal: No symptom reported Genitourinary: No symptom reported Musculoskeletal: No symptom reported Skin: No symptom reported Psychiatric: No symptom reported Endocrine: No symptom reported Hemotologic/Lymphatic: No symptom reported Vital Signs Vital Signs Date Time Temp Pulse Resp B/P (MAP) Pulse Ox O2 Delivery O2 Flow Rate FiO2 04/12/25 04:00 86 04/12/25 03:59 16 148/96 (113) 96 04/11/25 18:58 Nasal Cannula* 2 28 04/11/25 18:00 98.8 98.8 Physical Exam General Appearance: Cooperative. Well developed. Obese. In no acute distress Head Exam: Normal inspection Neck Exam: Normal inspection. Non-tender. Normal alignment Pulmonary/Respiratory: Chest non-tender. Clear bilateral breath sounds Cardiovascular/Chest: Regular rate and rhythm. Sinus rhythm with diffuse ST segment changes and Q-waves to inferior leads. S1, S2. Systolic murmur III/. No JVD. Peripheral Pulses: 2+ Radial (R). 2+ Radial (L). 2+ Pedal (R). 2+ Pedal (L) Abdominal Exam: Normal bowel sounds. Soft. Ankle Exam: Negative ankle edema Lower extremities: Negative lower extremity edema Neuro/Mental Status: A&O x4. Coherent Thoughts/Psych: Normal thought pattern. Appropriate mood and affect. Good judgement and insight Appearance: In no acute distress Skin Exam: Normal inspection. Normal color. Warm. Dry Labs/Diagnostic Data Labs Test 04/12/25 04:15 04/12/25 02:48 04/11/25 21:16 04/11/25 18:42 Range/Units White Blood Count 8.3 4.4-10.8 10^3/uL Red Blood Count 5.63 4.5-5.90 10^6/uL Hemoglobin 18.4 H 13.5-17.5 g/dL Hematocrit 53.3 H 41.0-53.0 % Mean Corpuscular Volume 94.7 80.0-100.0 fL Mean Corpuscular Hemoglobin 32.6 H 28.0-32.0 pg Mean Corpuscular Hemoglobin Concent 34.4 32.0-36.0 g/dL Red Cell Distribution Width 13.4 11.8-14.3 % Platelet Count 164 140-450 10^3/uL Mean Platelet Volume 8.8 6.9-10.8 fL Neutrophils (%) (Auto) 75.3 37.0-80.0 % Lymphocytes (%) (Auto) 12.2 10.0-50.0 % Monocytes (%) (Auto) 10.6 0.0-12.0 % Eosinophils (%) (Auto) 1.5 0.0-7.0 % Basophils (%) (Auto) 0.4 0.0-2.0 % Neutrophils # (Auto) 6.3 1.6-8.6 10 ^3/uL Lymphocytes # (Auto) 1.0 0.4-5.4 10 ^3/uL Monocytes # (Auto) 0.9 0-1.3 10 ^3/uL Eosinophils # (Auto) 0.1 0-0.8 10 ^3/uL Basophils # (Auto) 0 0-0.2 10 ^3/uL Nucleated Red Blood Cells 0.4 % Prothrombin Time 10.8 9.3-11.8 sec Prothrombin Time INR 1.02 0.9-1.15 Activated Partial Thromboplast Time 39.6 H 24.5-34.5 SEC Sodium Level 140 136-145 mmol/L Potassium Level 3.9 3.5-5.1 mmol/L Chloride Level 105 98-107 mmol/L Carbon Dioxide Level 25 20-31 mmol/L Anion Gap 10 5-15 Blood Urea Nitrogen 18 9-23 mg/dL Creatinine 0.85 0.700-1.30 mg/dL Glomerular Filtration Rate Calc 93 >90 mL/min BUN/Creatinine Ratio 21.2 H 10.0-20.0 Serum Glucose 107 H 74-106 mg/dL Calcium Level 9.1 8.7-10.4 mg/dL Total Bilirubin 0.7 0.2-1.0 mg/dL Aspartate Amino Transferase (AST) 150 H 13-40 U/L Alanine Aminotransferase (ALT) 35 7-40 U/L Alkaline Phosphatase 93 46-116 U/L Total Protein 6.4 5.7-8.2 g/dL Albumin 3.9 3.2-4.8 g/dL Hemoglobin A1c 5.8 H <5.7 % A1C Troponin I High Sensitivity 5616 *H </=54 ng/L Triglycerides Level 79 < 150 mg/dL Cholesterol Level 246 H < 200 mg/dL LDL Cholesterol 189 H < 100 mg/dL HDL Cholesterol 62 H 40-59 mg/dL POC Glucose 163 H 70-106 mg/dl Test 04/11/25 18:15 Range/Units B-Type Natriuretic Peptide 267.44 0-100 pg/mL Assessment Evolved inferior wall myocardial infarction Rule out structural heart disease Systolic murmur rule out valve disease Hypertensive urgency Prediabetes mellitus, newly diagnosed Dyslipidemia Remote history of tobacco use. Poor medical compliance Obesity Plan/Recommendation (Dr. Sawyer) Scheduled for urgent cardiac catheterization and coronary angiogram at first available. All risks and benefits of the procedure were discussed with the patient who agrees to proceed with intervention. All questions answered. In the meantime, continue heparin drip per pharmacy protocol, single-antiplatelet therapy, and high-intensity statin. Continue aggressive blood pressure control. Continue chest pain protocol. Further orders per clinical course. Thank you for allowing us to participate in this patient's care. Please call if you have any questions or concerns. Critical care time: 45 min. This medical document was created using an electronic medical record system with voice recognition software and computerized dictation system. Although this document has been carefully reviewed, there might still be some phonetic and typographical errors. Occasional wrong-word or ``sound-alike substitutions may have occurred due to the inherent limitations of voice recognition software. These areas are purely typographical due to imperfections of the software programs and do not reflect any compromise in the patient's medical care. Please read the chart carefully and recognize, using context, where these substitutions have occurred. Plan discussed with: Patient, Other NYHA Physical activity limitations: NA Date of Service: Apr 12, 2025 Billing Provider: COOKIE NGUYEN Cardiology Common Codes: [id number] CARE 30-74 MIN COOKIE NGUYEN Apr 12, 2025 08:25
[2025-04-12] MEDS ORDERED: ATORVASTATIN 20 MG TAB PO SCH (10:00)
[2025-04-12] MEDS: PANTOPRAZOLE 40 MG TAB PO SCH (10:14)
[2025-04-12] MEDS ORDERED: OPTISON 3ml Vial for INJ IV ONE (10:55)
--- NOTE | 2025-04-12 11:57 | DVHSR ---
APPROVED REPORT EXAM: Two-dimensional and M-mode echocardiogram with Doppler, color Doppler and Optison. Blood Pressure: 148/96 mmHg INDICATION R/O CHF Contrast Details Indication: Endocardial border delineation RISK FACTORS Obesity: Height: 5'8", Weight: 198 DIMENSIONS LVDd4.5 (3.8-5.7cm)LA (2D)3.8 (1.9-4.0cm)Aortic Root3.5 (2.0-3.7cm) LVDs3.2 (2.5-4.0cm)LA (MM) (1.9-4.0cm)Aortic Cusp Exc0.8 (1.5-2.0cm) EF (%) 55.0 (55-70%)Rt. Atrium4.0 (1.9-4.0cm)Asc. Aorta cm IVSd1.5 (0.7-1.1cm)RV (D) (1.8-2.4cm) PWd1.3 (0.7-1.1cm) Mitral Valve MitralMitral Stenosis E wave0.60m/sMV Mean GR.mmHg A wave0.76m/sMV Peak GR.mmHg E/A ratio0.82D MVAcm2 DECEL [id number] 1/2 Timems Aortic Valve Aortic ValveAortic Stenosis V10.81m/Yanique Mean GR.16mmHg V22.63m/Yanique Peak GR.28mmHg LVOT Diameter2.1 (1.8-2.4cm)Doppler AVA1.07cm2 Pulmonic Valve V20.96m/s Other Information Technically limited study due to body habitus. Conclusion lvef 40-45% apex is hypokinetic optison used for enhanced LV opacification mild to moderate LVH RV enlarged left atrium enlarged aortic sclerosis and calcium noted mild to moderate , mean gradient of 16 mmhg
[2025-04-12] MEDS: IODIXANOL 320MG/ML 100ML BTL IV ONE (13:05)
[2025-04-12] MEDS: ANGIOMAX 250 MG VIAL IV ONE (13:37)
[2025-04-12] MEDS: MIDAZOLAM HCL 2MG/2ML 2ml VIAL (1mg/ml) ONE (13:37)
[2025-04-12] MEDS: VERAPAMIL 2.5MG/ML INJ 2ML VIAL IV ONE (13:37)
[2025-04-12] MEDS: fentaNYL CITRATE 100 MCG/2 ML VL ONE ×2 (13:37→14:33)
[2025-04-12] MEDS: LIDOCAINE 2%HCL (LOCAL ANESTH.) INJ 20ML MDV ONE (13:38)
[2025-04-12] MEDS: SODIUM CHL 0.9% 50 ML ONE (13:38)
[2025-04-12] MEDS: ATROPINE SULF 1 MG/10ml SYR ONE (14:02)
[2025-04-12] MEDS: TICAGRELOR 90 MG TAB ONE (14:32)
--- NOTE | 2025-04-12 14:45 | DVHOP2 ---
Operative Report Operative Report CARDIAC INSPECTOR PLUG SEAM PROCEDURE REPORT [place], [place] Date of Service: 04/12/25 Snout Puller: Nancy He MD PROCEDURES PERFORMED: Coronary angiogram, left heart catheterization, conscious sedation administration and supervision, less than 15 minutes; fluoroscopy use and interpretation. sedation 15-30 mins, sedation 31-45 mins, PTCA 1 vessel, IVL shockwave [id number], PCI 1 vessel, Acute TN intervention PREOPERATIVE DIAGNOSES: acute TN, nstemi, rising trops POSTOP DIAGNOSIS: same DESCRIPTION OF PROCEDURE: The patient or appropriate family signed informed consent understanding the risks, benefits and alternatives of the procedure, they wished to proceed. The patient was brought to the cardiac hatchery laborer in n.p.o. state. The patient was prepped in a sterile fashion. Sedation was used per cardiac cath protocol. I administered 2 mL of 2% lidocaine to the right wrist. With an antegrade front wall puncture. I cannulated the right radial artery and placed a 6-[place] slender. Next, an intra-arterial spasmolytic was administered. Next, a - 5 [place] catheter andXB 3.5 and XB 3. guide and were used for coronary angiogram and LVEDP measurement and pressure pullback. At the completion of procedure, all guides and wires were removed, and there were no immediate complications. FINDINGS: RCA: Moderate vessel off the right sinus of Valsalva, there is a prox RCA NETWORK LIAISON. (similar to 2012) LEFT MAIN: Moderate size left main, it bifurcates into LAD and circumflex. mild plaque CIRCUMFLEX: Moderate caliber vessel coming off the left main. prox CX has stent with mild ISR. OM1 is NETWORK LIAISON with antegrade collaterals LAD: LAD is a moderate caliber vessel coming of the left main. prox LAD is patent. mid LAD has a 99% ruptured plaque. distal to apical lad has a 70% stenosis small vessel INTERVENTION: We decided to proceed with coronary intervention. I started with a 6F __XB 3.5 but c hanged to XB3 __ Guide to intubate the _LM _. Angiomax bolus and gtt was started. Following this, I decided to wire using an .014 Runthrough across the culprit lesion with ease.Then I ballooned using a 2.5 x 15 mm balloon up to 8 atms with 2 inflations. At this time, we performed balloon angioplasty with a 3 x 12 mm balloon by [employer] IVL balloon up to __4__ ATMS over __15__ seconds with __10 pulses each for total of 30 pulses__3 number of inflations. Following this, I decided to place a stent using a 3.0 x 38 mm onyx____ stent inflated up to __15___ ATMS over 15 seconds with two separate inflations. Following this, the stent balloon removed and angio performed showing 0% residual stenosis. KIEL pre/post: 3./3 CONCLUSIONS: 1. sp PCI and shockwave IVL to a 99% calcific ruptured LAD plaque 2. RCA NETWORK LIAISON 3. OM1 old stent NETWORK LIAISON PLAN: Aggressive risk factor modification and medical management for the patient. DAPT x 1 year uninterrupted NANCY HE MD Apr 12, 2025 14:45
--- NOTE | 2025-04-12 15:41 | DVHINCON2 ---
Date of service: Apr 12, 2025 History of Present Illness This is a pleasant 77-year-old man who presented to the emergency room via EMS with a chief complaint of chest pain since Saturday04/09/2025. The patient states on Saturday he was lifting 40 lb bags at the onset of chest pain symptoms for which he thought it was musculoskeletal pain and applied a lidocaine ointment to the chest wall area for relief. Describes the chest pain as substernal, radiating to bilateral arms, pressure-like, constant, and associated with shortness of breath. Given continuation of chest pain over the weekend he called 911. He was administered ASA 324 mg and unspecified NTG SL with mild relief of symptoms. At time of assessment he rated the chest pain as 3/10. He is currently on a heparin drip. Troponin levels are trending up with latest in the 5,000s ng/L. A 12 lead electrocardiogram revealed diffuse ST segment changes with associated Q-waves to inferior leads. Significant medical history includes multiple PTCAs including one PTCA to the LAD x 1 bare metal stent at [facility] and subsequent stage procedure of unknown vessels including 3DES at [facility] on 01/2012 without antiplatelet therapy since 2012, hypertension, dyslipidemia, remote history of tobacco use, and obesity. Past Medical History Past Medical History Past medical history reviewed. No other significant than mentioned above. Past Surgical History Past Surgical History PTCAs x 2 including one bare metal stent to the LAD at [facility] and 3DES to unknown vessels at [facility], 01/2012 Polycystic cyst removal Bilateral eyes Past Medical History reviewed Family History: Patient reports no known family medical history. Allergies: Coded Allergies: NO KNOWN ALLERGIES (Unverified , 01/22/12) Home Meds Active Scripts Cholecalciferol (VITAMIN D3) 2,000 Unit Tab, 1 TAB PO DAILY for 30 Days, #30 TAB 2 Refills Prov:ANASTACIA BARRIENTOS MD 08/14/20 Doxycycline Monohydrate (Doxycycline Monohydrate) 100 Mg Tab, 100 MG PO BID for 8 Days, #16 TAB Prov:ANASTACIA BARRIENTOS MD 08/14/20 Pantoprazole Sodium Sesquihydr (Protonix) 40 Mg Tab, 40 MG PO DAILY for 30 Days, #30 TAB Prov:ANASTACIA BARRIENTOS MD 08/14/20 Methylprednisolone (Medrol Dosepak) 4 Mg Gregorio, 4 MG PO UD, #21 TAB UAD Prov:ANASTACIA BARRIENTOS MD 08/14/20 Reported Medications Carvedilol (Carvedilol) 3.125 Mg Tab, 3.125 MG PO UNKNOWN FREQUENCY, MG 08/09/20 Current Medications Current Medications Medications (Trade) Dose Ordered Sig/Ana Route PRN Reason Start Time Stop Time Status Last Admin Heparin Sodium/ Dextrose 250 ml @ 10 mls/hr Q24H IV 04/11/25 19:00 04/12/25 05:34 DC 04/11/25 21:59 Acetaminophen/ Hydrocodone Bitart ([place] 5/325MG Tab) 1 tab Q4HP PRN PO MODERATE PAIN (4-6 PAIN SCALE) 04/11/25 22:45 04/12/25 01:23 Nitroglycerin (Ntrostat Sublingual) 0.4 mg Q5MINP PRN SL FOR CHEST PAIN 04/11/25 22:45 Morphine Sulfate 2 mg Q30M PRN IV FOR CHEST PAIN 04/11/25 22:45 Aspirin 81 mg DAILY PO 04/12/25 10:00 04/12/25 10:17 Atorvastatin Calcium (Lipitor) 80 mg DAILY PO 04/12/25 10:00 04/12/25 08:33 DC Carvedilol (Coreg Tablet) 3.125 mg DAILY PO 04/11/25 22:45 04/12/25 10:17 Pantoprazole Sodium (Protonix Tablet) 40 mg DAILY PO 04/12/25 10:00 04/12/25 10:14 Heparin Sodium/ Dextrose 250 ml @ 12 mls/hr [id number] IV 04/12/25 05:45 04/12/25 14:47 DC 04/12/25 06:13 Atorvastatin Calcium (Lipitor) 80 mg DAILY PO 04/12/25 22:00 Lisinopril (Zestril Tablet) 20 mg DAILY PO 04/13/25 10:00 Clopidogrel Bisulfate (Plavix) 75 mg DAILY PO 04/13/25 10:00 UNV Review of Systems 10 pt ros otherwise negative Vital Signs Vital Signs Date Time Temp Pulse Resp B/P (MAP) Pulse Ox O2 Delivery O2 Flow Rate FiO2 04/12/25 11:17 94 128/74 04/12/25 08:00 18 2 04/11/25 18:58 Nasal Cannula* 2 28 04/11/25 18:00 98.8 98.8 Physical Exam nad s1 s2 rrr ctab soft nt/nd no edema Labs/Diagnostic Data Labs Test 04/12/25 04:15 04/12/25 02:48 04/11/25 21:16 04/11/25 18:42 Range/Units White Blood Count 8.3 4.4-10.8 10^3/uL Red Blood Count 5.63 4.5-5.90 10^6/uL Hemoglobin 18.4 H 13.5-17.5 g/dL Hematocrit 53.3 H 41.0-53.0 % Mean Corpuscular Volume 94.7 80.0-100.0 fL Mean Corpuscular Hemoglobin 32.6 H 28.0-32.0 pg Mean Corpuscular Hemoglobin Concent 34.4 32.0-36.0 g/dL Red Cell Distribution Width 13.4 11.8-14.3 % Platelet Count 164 140-450 10^3/uL Mean Platelet Volume 8.8 6.9-10.8 fL Neutrophils (%) (Auto) 75.3 37.0-80.0 % Lymphocytes (%) (Auto) 12.2 10.0-50.0 % Monocytes (%) (Auto) 10.6 0.0-12.0 % Eosinophils (%) (Auto) 1.5 0.0-7.0 % Basophils (%) (Auto) 0.4 0.0-2.0 % Neutrophils # (Auto) 6.3 1.6-8.6 10 ^3/uL Lymphocytes # (Auto) 1.0 0.4-5.4 10 ^3/uL Monocytes # (Auto) 0.9 0-1.3 10 ^3/uL Eosinophils # (Auto) 0.1 0-0.8 10 ^3/uL Basophils # (Auto) 0 0-0.2 10 ^3/uL Nucleated Red Blood Cells 0.4 % Prothrombin Time 10.8 9.3-11.8 sec Prothrombin Time INR 1.02 0.9-1.15 Activated Partial Thromboplast Time 39.6 H 24.5-34.5 SEC Sodium Level 140 136-145 mmol/L Potassium Level 3.9 3.5-5.1 mmol/L Chloride Level 105 98-107 mmol/L Carbon Dioxide Level 25 20-31 mmol/L Anion Gap 10 5-15 Blood Urea Nitrogen 18 9-23 mg/dL Creatinine 0.85 0.700-1.30 mg/dL Glomerular Filtration Rate Calc 93 >90 mL/min BUN/Creatinine Ratio 21.2 H 10.0-20.0 Serum Glucose 107 H 74-106 mg/dL Calcium Level 9.1 8.7-10.4 mg/dL Total Bilirubin 0.7 0.2-1.0 mg/dL Aspartate Amino Transferase (AST) 150 H 13-40 U/L Alanine Aminotransferase (ALT) 35 7-40 U/L Alkaline Phosphatase 93 46-116 U/L Total Protein 6.4 5.7-8.2 g/dL Albumin 3.9 3.2-4.8 g/dL Thyroid Stimulating Hormone (TSH) 2.44 0.55-4.78 uIU/mL Hemoglobin A1c 5.8 H <5.7 % A1C Troponin I High Sensitivity 5616 *H </=54 ng/L Triglycerides Level 79 < 150 mg/dL Cholesterol Level 246 H < 200 mg/dL LDL Cholesterol 189 H < 100 mg/dL HDL Cholesterol 62 H 40-59 mg/dL POC Glucose 163 H 70-106 mg/dl Test 04/11/25 18:15 Range/Units B-Type Natriuretic Peptide 267.44 0-100 pg/mL Assessment NSTEMI hx of cad HTN HL CKD Plan/Recommendation recommend [facility] dayanna nstemi reviewed 2011 pci had lad pci done had high grade OM lesion ??stent at [facility] start dapt 40 mins critical care time spent Plan discussed with: Patient NANCY HE MD Apr 12, 2025 15:41
--- NOTE | 2025-04-12 15:54 | DVHPNRES ---
Progress Note Date Seen: Apr 12, 2025 Resident Creating Document: BUCKY ZAMBRANO RESIDENT Medical Necessity Reason Pt with a Central, PICC or Fol: No Subjective Review of Systems Javon Carter,77-year-old man with a past medical history of hypertension and CAD, presented to the emergency room via EMS with a chief complaint of chest pain since Saturday04/09/2025. The patient states on Saturday he was lifting 40 lb bags at the onset of chest pain symptoms for which he thought it was musculoskeletal pain and applied a lidocaine ointment to the chest wall area for relief. He describes the chest pain as substernal, radiating to bilateral arms, pressure-like, constant, 6/10, and associated with shortness of breath. Given continuation of chest pain over the weekend while doing groceries he called 911. He was given aspirin 324 mg and 0.4 mg nitroglycerin sublingually with mild relief of symptoms. Patient denies palpitations, SOB, dizziness, lightheadedness, nausea, vomiting,or other symptoms. On initial evaluation in the ED his BP was 192/116mmHg. PMH: Hypertension, CAD Past Surgical History: PTCAs x 2 including one bare metal stent to the LAD at [facility] and 3DES to unknown vessels at [facility], Family History: reviewed and noncontributory Social History: Denies the use of illicit drugs, alcohol, or tobacco use. Quit tobacco use in 1974 with a 5 pack-year history. Home medications: Carvedilol 3.25 mg OD, Lipitor( has not been compliant for years due to nausea) Allergies: None ROS: Patient was seen at the bedside of the emergency by me. Patient has no active complaints. 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 We will continue monitoring him. Planning to begin Jardiance and spironolactone from tomorrow Objective vital signs Vital Sign Date Time Temp Pulse Resp B/P (MAP) Pulse Ox O2 Delivery O2 Flow Rate FiO2 04/12/25 11:17 94 128/74 04/12/25 08:00 18 2 04/11/25 18:58 Nasal Cannula* 2 28 04/11/25 18:00 98.8 98.8 medications Current Medications Medications Dose Ordered Sig/Ana Route Start Time Stop Time Status Last Admin Dose Admin Acetaminophen/ Hydrocodone Bitart 1 tab Q4HP PRN PO 04/11/25 22:45 04/12/25 01:23 1 TAB Nitroglycerin 0.4 mg Q5MINP PRN SL 04/11/25 22:45 Morphine Sulfate 2 mg Q30M PRN IV 04/11/25 22:45 Aspirin 81 mg DAILY PO 04/12/25 10:00 04/12/25 10:17 81 MG Pantoprazole Sodium 40 mg DAILY PO 04/12/25 10:00 04/12/25 10:14 40 MG Atorvastatin Calcium 80 mg DAILY PO 04/12/25 22:00 Lisinopril 20 mg DAILY PO 04/13/25 10:00 Clopidogrel Bisulfate 75 mg DAILY PO 04/13/25 10:00 Carvedilol 3.125 mg BID PO 04/12/25 22:00 UNV Spironolactone 25 mg DAILY PO 04/13/25 10:00 UNV Empaglifozin 10 mg DAILY PO 04/13/25 10:00 UNV Examination Pt is lying on bed General Appearance: Alert, Oriented X3, Cooperative, Not in acute distress HEENT: Atraumatic, Mucous membranes moist/pink Respiratory: Clear to auscultation, Normal air movement, No added sounds Cardiovascular: Regular rate, Normal S1, Normal S2, No murmurs Abdominal: Active bowel sounds, Soft, no distention, no tenderness Extremities: No edema, Normal pulses, No tenderness , +1 pitting edema of bilateral legs Skin: No Significant rash, except past surgical scars Neuro: Normal speech, sensorimotor deficits none Psych/Mental Status: Mental status NL, Mood NL Nurse was there as spool winder during examination laboratory and microbiology Laboratory Tests 04/12/25 04:15 Test 04/12/25 04:15 Range/Units Serum Glucose 107 H 74-106 mg/dL Labs and/or images reviewed: Labs reviewed by me, Image(s) reviewed by me Problem List/Assessment/Plan Problem List/Assessment/Plan #Acute chest pain, due to NSTEMI type 1 #S/P PCI and shockwave IVL to a 99% calcific ruptured LAD plaque (04/12/2025) #hx of CAD with 4 stent placements (last placed 2011) #Hypertensive urgency # HFmrEF 45%,not under exacerbation, NYHA 3 -EKG -LDH 640 -Echo shows:echo: lvef 40-45%; lvef 40-45%; apex is hypokinetic; optison used for enhanced LV opacification; mild to moderate LVH; RV enlarged ; left atrium enlarged; aortic sclerosis and calcium noted; mild to moderate , mean gradient of 16 mmhg -Aspirin 81 mg per orally q.d. 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 Murray, patient and nurse. Plan discussed with: Patient, Other (rn) Date of Service: Apr 12, 2025 Billing Provider: RUDY MURRAY MD Common Visit Codes: [id number] INP/OBS CARE(HIGH) BUCKY ZAMBRANO RESIDENT Apr 12, 2025 15:54 RUDY MURRAY MD Apr 13, 2025 18:31
[2025-04-12 16:56] LABS: INR 1.48 (0.9-1.15); Prothrombin Time 15.1 sec (9.3-11.8)
[2025-04-12 17:14] LABS: Partial Thromboplastin Time 82.8 SEC (24.5-34.5)
[2025-04-12] MEDS: CLOPIDOGREL BISULFATE 75 MG TAB PO ONE (21:17)
[2025-04-12] MEDS: ATORVASTATIN 20 MG TAB PO SCH (21:17)
[2025-04-12] MEDS: CARVEDILOL 3.125 MG TAB PO SCH (21:17)
[2025-04-13 05:00] VITALS: BP 149/95; PULSE 81; RESP 18; TEMP 97.5; O2SAT 96
[2025-04-13 08:00] VITALS: PULSE 80
[2025-04-13 09:00] VITALS: BP 143/93; PULSE 86; RESP 17; TEMP 98.5; O2SAT 96
[2025-04-13] MEDS: CLOPIDOGREL BISULFATE 75 MG TAB PO SCH (09:17)
[2025-04-13] MEDS: LISINOPRIL 20 MG TAB PO SCH (09:18)
[2025-04-13] MEDS: EMPAGLIFLOZIN 10 MG TAB PO SCH (09:19)
[2025-04-13] MEDS: SPIRONOLACTONE 25 MG TAB PO SCH (09:26)
[2025-04-13 10:22] LABS: Alanine Aminotransferase 37 U/L (7-40); Albumin 4.4 g/dL (3.2-4.8); Alkaline Phosphatase 92 U/L (46-116); Anion Gap 6 (5-15); BUN/Creatinine Ratio 12.6 (10.0-20.0); Blood Urea Nitrogen 14 mg/dL (9-23); Calcium 9.7 mg/dL (8.7-10.4); Carbon Dioxide 27 mmol/L (20-31); Chloride 103 mmol/L (98-107); Potassium 4.4 mmol/L (3.5-5.1); Sodium 136 mmol/L (136-145); Total Protein 7.0 g/dL (5.7-8.2)
[2025-04-13 10:23] LABS: Bilirubin, Total 1.0 mg/dL (0.2-1.0); INR 1.04 (0.9-1.15); Partial Thromboplastin Time 35.3 SEC (24.5-34.5); Prothrombin Time 11.0 sec (9.3-11.8)
[2025-04-13 10:33] LABS: Glucose 138 mg/dL (74-106)
[2025-04-13 10:35] LABS: Hematocrit 54.4 % (41.0-53.0); Hemoglobin 18.8 g/dL (13.5-17.5); Mean Corpuscular Hemoglobin 32.5 pg (28.0-32.0); Mean Corpuscular Volume 94.2 fL (80.0-100.0); Nucleated Red Blood Cells % 0.1 %
[2025-04-13 13:00] VITALS: BP 127/87; PULSE 82; RESP 17; TEMP 97.9; O2SAT 97
[2025-04-13] MEDS ORDERED: EMPA1TAB PO (13:34)
[2025-04-13] MEDS ORDERED: ASPI-325 PO (13:34)
[2025-04-13] MEDS ORDERED: CLOP75TA70 PO (13:34)
[2025-04-13] MEDS ORDERED: ROSU20TA14 PO (13:34)
[2025-04-13] MEDS ORDERED: SPIR25TA PO (13:34)
[2025-04-13] MEDS ORDERED: CARV-214 PO (13:34)
[2025-04-13] MEDS ORDERED: LISI20TA56 PO (13:34)
--- NOTE | 2025-04-13 14:39 | DVHPN2 ---
Consult Progress Note Date Seen: Apr 13, 2025 Subjective Review of Systems: CVS:Normal, RESPIRATORY:Normal, NEURO:Normal Objective vital signs Vital Sign Date Time Temp Pulse Resp B/P (MAP) Pulse Ox O2 Delivery O2 Flow Rate FiO2 04/13/25 13:00 97.9 82 17 127/87 (100) 97 97.9 04/13/25 08:00 Room Air* 0 21 Total Intake and Output 04/12/25 04/12/25 04/13/25 15:00 23:00 07:00 Intake Total 650 ml Balance 650 ml medications Current Medications Medications Dose Ordered Sig/Ana Route Start Time Stop Time Status Last Admin Dose Admin Acetaminophen/ Hydrocodone Bitart 1 tab Q4HP PRN PO 04/11/25 22:45 04/12/25 01:23 1 TAB Nitroglycerin 0.4 mg Q5MINP PRN SL 04/11/25 22:45 Morphine Sulfate 2 mg Q30M PRN IV 04/11/25 22:45 Aspirin 81 mg DAILY PO 04/12/25 10:00 04/13/25 09:19 81 MG Pantoprazole Sodium 40 mg DAILY PO 04/12/25 10:00 04/13/25 09:26 40 MG Atorvastatin Calcium 80 mg DAILY PO 04/12/25 22:00 04/13/25 09:16 80 MG Lisinopril 20 mg DAILY PO 04/13/25 10:00 04/13/25 09:18 20 MG Clopidogrel Bisulfate 75 mg DAILY PO 04/13/25 10:00 04/13/25 09:17 75 MG Carvedilol 3.125 mg BID PO 04/12/25 22:00 04/13/25 09:17 3.125 MG Spironolactone 25 mg DAILY PO 04/13/25 10:00 04/13/25 09:26 25 MG Empaglifozin 10 mg DAILY PO 04/13/25 10:00 04/13/25 09:19 10 MG Examination: GENERAL:Normal, LUNGS:Normal, CVS:Abnormal (NSR. 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 Poor medical compliance Obesity Plan/Recommendation (Dr. Sawyer) The patient underwent a successful cardiac catheterization and coronary angiogram status post PCI and shockwave therapy IVL to a 99% calcified rupture LAD plaque (see operative report). A transthoracic echocardiogram revealed LVEF 40-45% with a hypokinetic apex, [id number] LVH, RV enlarged, left atrium enlarged, and [id number] . Recommendations are to initiate GDMT for HFmrEF inclunding BB, SGLT2i, and ACEI. Continue dual antiplatelet therapy, uninterrupted for one year, and high-intensity statin. Follow up with the primary mattress stripper within 1-2 weeks. There is no further cardiac workup indicated at this time. Kindly call if in need to re-consult Thank you for allowing us to participate in this patient's care. Please call if you have any questions or concerns. Critical care time: 45 min. This medical document was created using an electronic medical record system with voice recognition software and computerized dictation system. Although this document has been carefully reviewed, there might still be some phonetic and typographical errors. Occasional wrong-word or ``sound-alike substitutions may have occurred due to the inherent limitations of voice recognition software. These areas are purely typographical due to imperfections of the software programs and do not reflect any compromise in the patient's medical care. Please read the chart carefully and recognize, using context, where these substitutions have occurred. Plan discussed with: Patient, Other Date of Service: Apr 13, 2025 Billing Provider: COOKIE NGUYEN Cardiology Common Codes: [id number](High COOKIE NGUYEN Apr 13, 2025 14:39
--- NOTE | 2025-04-13 14:42 | DVHDSRES ---
Discharge Summary Date of Admission Resident Creating Document: BUCKY ZAMBRANO RESIDENT Apr 11, 2025 at 22:38 Date of Discharge: Apr 13, 2025 Admitting Diagnosis Acute chest pain, due to NSTEMI type 1 Labs/Diagnostic Data: Laboratory Results Test 04/13/25 09:36 04/12/25 04:15 04/12/25 02:48 04/11/25 21:16 White Blood Count 8.9 10^3/uL (4.4-10.8) Red Blood Count 5.77 10^6/uL (4.5-5.90) Hemoglobin 18.8 g/dL (13.5-17.5) Hematocrit 54.4 % (41.0-53.0) Mean Corpuscular Volume 94.2 fL (80.0-100.0) Mean Corpuscular Hemoglobin 32.5 pg (28.0-32.0) Mean Corpuscular Hemoglobin Concent 34.5 g/dL (32.0-36.0) Red Cell Distribution Width 13.7 % (11.8-14.3) Platelet Count 178 10^3/uL (140-450) Mean Platelet Volume 8.7 fL (6.9-10.8) Neutrophils (%) (Auto) 78.2 % (37.0-80.0) Lymphocytes (%) (Auto) 10.5 % (10.0-50.0) Monocytes (%) (Auto) 10.0 % (0.0-12.0) Eosinophils (%) (Auto) 1.0 % (0.0-7.0) Basophils (%) (Auto) 0.3 % (0.0-2.0) Neutrophils # (Auto) 7.0 10 ^3/uL (1.6-8.6) Lymphocytes # (Auto) 0.9 10 ^3/uL (0.4-5.4) Monocytes # (Auto) 0.9 10 ^3/uL (0-1.3) Eosinophils # (Auto) 0.1 10 ^3/uL (0-0.8) Basophils # (Auto) 0 10 ^3/uL (0-0.2) Nucleated Red Blood Cells 0.1 % Prothrombin Time 11.0 sec (9.3-11.8) Prothrombin Time INR 1.04 (0.9-1.15) Activated Partial Thromboplast Time 35.3 SEC (24.5-34.5) Sodium Level 136 mmol/L (136-145) Potassium Level 4.4 mmol/L (3.5-5.1) Chloride Level 103 mmol/L (98-107) Carbon Dioxide Level 27 mmol/L (20-31) Anion Gap 6 (5-15) Blood Urea Nitrogen 14 mg/dL (9-23) Creatinine 1.11 mg/dL (0.700-1.30) Glomerular Filtration Rate Calc 71 mL/min (>90) BUN/Creatinine Ratio 12.6 (10.0-20.0) Serum Glucose 138 mg/dL (74-106) Calcium Level 9.7 mg/dL (8.7-10.4) Total Bilirubin 1.0 mg/dL (0.2-1.0) Aspartate Amino Transferase (AST) 108 U/L (13-40) Alanine Aminotransferase (ALT) 37 U/L (7-40) Alkaline Phosphatase 92 U/L (46-116) Total Protein 7.0 g/dL (5.7-8.2) Albumin 4.4 g/dL (3.2-4.8) Thyroid Stimulating Hormone (TSH) 2.44 uIU/mL (0.55-4.78) Hemoglobin A1c 5.8 % A1C (<5.7) Troponin I High Sensitivity 5616 ng/L (</=54) Triglycerides Level 79 mg/dL (< 150) Cholesterol Level 246 mg/dL (< 200) LDL Cholesterol 189 mg/dL (< 100) HDL Cholesterol 62 mg/dL (40-59) Test 04/11/25 18:42 04/11/25 18:15 POC Glucose 163 mg/dl (70-106) B-Type Natriuretic Peptide 267.44 pg/mL (0-100) Other Laboratory Tests 04/13/25 09:36 Brief Hx & Hospital Course: Javon Carter,77-year-old man with a past medical history of hypertension and CAD, presented to the emergency room via EMS with a chief complaint of chest pain since Saturday04/09/2025. The patient states on Saturday he was lifting 40 lb bags at the onset of chest pain symptoms for which he thought it was musculoskeletal pain and applied a lidocaine ointment to the chest wall area for relief. He describes the chest pain as substernal, radiating to bilateral arms, pressure-like, constant, 6/10, and associated with shortness of breath. Given continuation of chest pain over the weekend while doing groceries he called 911. He was given aspirin 324 mg and 0.4 mg nitroglycerin sublingually with mild relief of symptoms. Patient denies palpitations, SOB, dizziness, lightheadedness, nausea, vomiting,or other symptoms. On initial evaluation in the ED his BP was 192/116mmHg. PMH: Hypertension, CAD Past Surgical History: PTCAs x 2 including one bare metal stent to the LAD at [facility] and 3DES to unknown vessels at [facility], Family History: reviewed and noncontributory Social History: Denies the use of illicit drugs, alcohol, or tobacco use. Quit tobacco use in 1974 with a 5 pack-year history. Home medications: Carvedilol 3.25 mg OD, Lipitor( has not been compliant for years due to nausea) Allergies: None Brief history of hospitalization: patient came in with acute chest pain due to NSTEMI type 1. Troponins on arrival was 3553 which was up trending in the next 2 readings of to 5616. 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 RV enlarged ; left atrium enlarged; aortic sclerosis and calcium noted; mild to moderate , mean gradient of 16 mmhg. Patient has a history of CAD with 4 stent placements with the last and placed into 1012. When he came in he had hypertensive urgency as well. We started the patient on aspirin 81 mg, clopidogrel 75 mg, lisinopril give morphine 2 mg Q 30 PRN for chest pain, as well as hydrocodone 5/325 mg q.4 PRN. We guided carvedilol 3.125 mg and cardiac consultation was done who suggested left heart catheterization. Patient underwent PCI and shockwave IVF to 99% calcified ruptured LAD plaque, RCA DEMURRAGE CLERK, OM1 old stent DEMURRAGE CLERK. Today the patient is day 1 status post PCI and reports feeling much better. He reports that his chest pain is gone any shortness of breath has decreased as well. We started the patient today on spironolactone and Jardiance. For patient's prediabetic status we checked his HbA1c which came back as 5.8 started him on mild sliding scale insulin and discontinued it. Patient also had dyslipidemia and a lipid panel was done, ASCVD risk was 21% and atorvastatin 80 mg was continued. The patient's obesity, BMI 30.2, we counseled the patient regarding lifestyle modification and exercise. Today patient reports feeling much better and he was monitored overnight with no cardiac events. He is stable for discharge. We have counseled the patient regarding the medicines he is to take at home as well and he has verbalized understanding. He is stable and has agreed to the discharge plan. General Appearance: Alert, Oriented X3, Cooperative, Not in acute distress HEENT: Atraumatic, Mucous membranes moist/pink Respiratory: Clear to auscultation, Normal air movement, No added sounds Cardiovascular: Regular rate, Normal S1, Normal S2, No murmurs Abdominal: Active bowel sounds, Soft, no distention, no tenderness Extremities: No edema, Normal pulses, No tenderness , +1 pitting edema of bilateral legs Skin: No Significant rash, except past surgical scars Neuro: Normal speech, sensorimotor deficits none Psych/Mental Status: Mental status NL, Mood NL Nurse was there as prestressed concrete laborer during examination Operations or Procedures EXAM: Two-dimensional and M-mode echocardiogram with Doppler, color Doppler and Optison. Blood Pressure: 148/96 mmHg INDICATION R/O CHF ECHO: Contrast Details Indication: Endocardial border delineation RISK FACTORS Obesity: Height: 5'8", Weight: 198 DIMENSIONS LVDd 4.5 (3.8-5.7cm) LA (2D) 3.8 (1.9-4.0cm) Aortic Root 3.5 (2.0- 3.7cm) LVDs 3.2 (2.5-4.0cm) LA (MM) (1.9-4.0cm) Aortic Cusp Exc 0.8 (1.5- 2.0cm) EF (%) 55.0 (55-70%) Rt. Atrium 4.0 (1.9-4.0cm) Asc. Aorta cm IVSd 1.5 (0.7-1.1cm) RV (D) (1.8-2.4cm) PWd 1.3 (0.7-1.1cm) Mitral Valve Mitral Mitral Stenosis E wave 0.60m/s MV Mean GR. mmHg A wave 0.76m/s MV Peak GR. mmHg E/A ratio 0.8 2D MVA cm2 DECEL Time 239ms PRESS 1/2 Time ms Aortic Valve Aortic Valve Aortic Stenosis V1 0.81m/s AO Mean GR. 16mmHg V2 2.63m/s AO Peak GR. 28mmHg LVOT Diameter 2.1 (1.8-2.4cm) Doppler [place] 1.07cm2 Pulmonic Valve V2 0.96m/s Other Information Technically limited study due to body habitus. Conclusion lvef 40-45% apex is hypokinetic optison used for enhanced LV opacification mild to moderate LVH RV enlarged left atrium enlarged aortic sclerosis and calcium noted mild to moderate , mean gradient of 16 mmhg SIGNED BY: NANCY HE MD SIGNED DATE/TIME: 04/12/25 3447 EXAM: XY CHEST XRAY 1 VIEW IMPRESSION: Linear opacities in the mid to lower lungs bilaterally which could reflect areas of scarring and/or atelectasis. 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%,not under exacerbation, NYHA 3 #Dyslipidemia #Obesity (BMI 30.2) #Transaminitis Discharge Disposition: Home Discharge Instruct/Medications Diet: Consistent carbohydrate, Cardiac 2g Na,low cholest Activity: No Restrictions, As Tolerated Follow Up/Referral: Follow up with PCP in 10 days Medications: Aspirin 81 mg per orally daily Coreg 3.125 mg per orally twice a day Clopidogrel bisulfate 75 mg per orally daily Empagliflozin 10 mg per orally daily Lisinopril 20 mg per orally daily Rosuvastatin 20 mg per orally at night Aldactone 25 mg per orally daily Continue vitamin-D, Protonix tablets daily Scheduled Aspirin (Aspirin Low Dose), 81 MG PO DAILY Carvedilol (Coreg), 3.125 MG PO BID Cholecalciferol (Vitamin D3), 1 TAB PO DAILY Clopidogrel Bisulfate (Clopidogrel), 75 MG PO DAILY Empagliflozin (Jardiance), 10 MG PO DAILY Lisinopril (Lisinopril), 20 MG PO DAILY Pantoprazole Sodium Sesquihydr (Protonix), 40 MG PO DAILY Rosuvastatin Calcium (Crestor), 20 MG PO HS Spironolactone (Aldactone), 25 MG PO DAILY Discontinued Medications Carvedilol (Carvedilol), 3.125 MG PO UNKNOWN FREQUENCY, (Reported) Doxycycline Monohydrate (Doxycycline Monohydrate), 100 MG PO BID Methylprednisolone (Medrol Dosepak), 4 MG PO UD Discharge Statement: "Patient was advised to return to the ER or call 911 if any headaches, dizziness, shortness of breath, chest pain, abdominal pain, bleeding, fevers, or worsening of medical condition. Patient was counseled about treatment plan, medications, possible side effects, patientverbalized understanding. All questions were answered to the best of my ability. This discharge took greater then 30 minutes in planning, reviewing documentation, counseling the patient, and discussing with other team members." ASSESSMENT ASSESSMENT Assessment Acute chest pain, due to NSTEMI type 1 S/p PCI and shockwave IVL to 99% calcific ruptured LAD plaque Date of Service: Apr 13, 2025 Billing Provider: RUDY MENDOZA MD Common Visit Codes: 01840-TWD/OBS DISCH DAY >30min BUCKY ZAMBRANO Apr 13, 2025 14:42 RUDY MENDOZA MD Apr 13, 2025 18:23
== END 2025-04-13 15:30 | disposition home or self-care (01) | DRG 323 ==
LOC: EDBD 17:19 → ER 17:19 → OVERFLOW 22:38 → TELE-WESTW 04-12 17:20
PROVIDERS: ADMIT Internal Medicine; ATTEND Internal Medicine
PROC: 027034Z Dilation of Coronary Artery, One Artery with Drug-eluting Intraluminal Device, Percutaneous Approach (ICD-10-PCS; principal; 2025-04-12)
PROC: 02F03ZZ Fragmentation in Coronary Artery, One Artery, Percutaneous Approach (ICD-10-PCS; 2025-04-12)
PROC: 4A023N7 Measurement of Cardiac Sampling and Pressure, Left Heart, Percutaneous Approach (ICD-10-PCS; 2025-04-12)
PROC: B211YZZ Fluoroscopy of Multiple Coronary Arteries using Other Contrast (ICD-10-PCS; 2025-04-12)
DX: I21.4 Non-ST elevation (NSTEMI) myocardial infarction (principal); I50.43 Acute on chronic combined systolic (congestive) and diastolic (congestive) heart failure; I16.1 Hypertensive emergency; I13.0 Hypertensive heart and chronic kidney disease with heart failure and stage 1 through stage 4 chronic kidney disease, or unspecified chronic kidney disease; N18.9 Chronic kidney disease, unspecified; E66.9 Obesity, unspecified; Z68.30 Body mass index [BMI] 30.0-30.9, adult; I35.0 Nonrheumatic aortic (valve) stenosis; I25.10 Atherosclerotic heart disease of native coronary artery without angina pectoris; R73.03 Prediabetes; E78.5 Hyperlipidemia, unspecified; R74.01 Elevation of levels of liver transaminase levels; R01.1 Cardiac murmur, unspecified; Z87.891 Personal history of nicotine dependence; I25.2 Old myocardial infarction; I16.0 Hypertensive urgency
CPT/HCPCS: 36415; 71045; 80048; 80053; 80061; 82962; 83036; 83880; 84443; 84484; 85025; 85610; 85730; 92941; 92972; 93005; 93306; 93458; 99152; 99291; G0378; J2250; J2405; Q9956; Q9967

== ENCOUNTER 2025-06-20 06:28 | Inpatient (IN) | payer OTHER ==
[~2025-06-20] VITALS: Ht 180.3 cm; Wt 114.7 kg
[~2025-06-20 06:28] MED LIST changes: +ASPI-325 PO; +CARV-214 PO; -CARV3.1240 PO; +CLOP75TA70 PO; -DOXY-111 PO; +EMPA1TAB PO; +LISI20TA56 PO; -METH4PAK PO; +ROSU20TA14 PO; +SPIR25TA PO
--- NOTE | 2025-06-20 06:51 | ED.PDOC ---
HPI Comments 69 y.o male with PMHx of CAD, PTCA, and HTN, presents to the ED via EMS for a chief complaint of chest pain associated with SOB and nausea that started this morning around 0100. Patient describes pain as a pressure sensation that diffuses across his chest and is constant. Patient rated his pain rate a 8/10 however decreased to a 5/10 s/p EMS administrating one dose of NTG en route. Patient denies any nausea, vomiting, abdominal pain, fever, or chills. He mentions having a roundhouse worker appointment on 06/22/25 however does not know the name of the doctor. Chief Complaint: Chest Pain Time Seen by MD: 06:28 Primary Care Provider: UNKNOWN Reviewed Notes: Nurses Notes, Movement Education Specialist Notes, Medications, Allergies Allergies: Coded Allergies: NO KNOWN ALLERGIES (Unverified , 01/22/12) Home Meds Active Scripts Rosuvastatin Calcium (Crestor) 20 Mg Tab, 20 MG PO HS for 30 Days, #30 TAB Prov:[facility] 04/13/25 Spironolactone (Aldactone) 25 Mg Tab, 25 MG PO DAILY for 30 Days, #30 TAB Prov:[facility] 04/13/25 Lisinopril (Lisinopril) 20 Mg Tab, 20 MG PO DAILY for 30 Days, #30 TAB Prov:[facility] 04/13/25 Empagliflozin (Jardiance) 10 Mg Tab, 10 MG PO DAILY for 30 Days, #30 TAB Prov:[facility] 04/13/25 Clopidogrel Bisulfate (CLOPIDOGREL) 75 Mg Tab, 75 MG PO DAILY for 30 Days, #30 TAB Prov:[facility] 04/13/25 Carvedilol (COREG) 3.125 Mg Tab, 3.125 MG PO BID for 30 Days, #60 TAB Prov:[facility] 04/13/25 Aspirin (Aspirin Low Dose) 81 Mg Tab, 81 MG PO DAILY for 30 Days, #30 TAB Prov:[facility] 04/13/25 Cholecalciferol (VITAMIN D3) 2,000 Unit Tab, 1 TAB PO DAILY for 30 Days, #30 TAB 2 Refills Prov:ANASTACIA BARRIENTOS MD 08/14/20 Pantoprazole Sodium Sesquihydr (Protonix) 40 Mg Tab, 40 MG PO DAILY for 30 Days, #30 TAB Prov:ANASTACIA BARRIENTOS MD 08/14/20 Information Source: Patient, Emergency Med Personnel Mode of Arrival: EMS Severity: Moderate Timing: Hours Duration: Since onset Prehospital treatment: 12 Lead EKG, Combiner Operator, NTG Quality: Pressure Onset: At Rest Cardiac Risk Factors: HTN PE Risk Factors: None History of: Similar pain in past Modifying Factors: Nothing Associated Signs and Symptoms: SOB, N/V Past Medical History PAST MEDICAL HISTORY: CAD, HTN, NE Surgical History: PTCA Family History Family History: Unknown Social History Smoker: Non-Smoker Alcohol: Denies ETOH Use Drugs: Denies Drug Use Lives In: Home Constitutional: denies: chills, diaphoresis, fatigue, fever, malaise, sweats, weakness, others EENTM: denies: blurred vision, double vision, ear bleeding, ear discharge, ear drainage, ear pain, ear ringing, eye pain, eye redness, hearing loss, mouth pain, mouth swelling, nasal discharge, nose bleeding, nose congestion, nose pain , photophobia, tearing, throat pain, throat swelling, voice changes, others Respiratory: reports: SOB at rest, shortness of breath; denies: cough, hemoptysis, orthopnea, SOB with excertion, stridor, wheezing, others Cardiovascular: reports: chest pain; denies: dizzy spells, diaphoresis, Dyspnea on exertion, edema, irregular heart beat, left arm pain, lightheadedness, palpitations, PND, syncope, others Gastrointestinal: reports: nausea; denies: abdomen distended, abdominal pain, blood streaked bowels, constipated, diarrhea, dysphagia, difficulty swallowing, hematemesis, melena, poor appetite, poor fluid intake, rectal bleeding, rectal pain, vomiting, others Genitourinary: denies: burning, dysuria, flank pain, frequency, hematuria, incontinence, penile discharge, penile sore, pain, testicle pain, testicle swelling, urgency, others Neurological: denies: dizziness, fainting, headache, left sided numbness, left sided weakness, numbness, paresthesia, pre-existing deficit, right sided numbness, right sided weakness, seizure, speech problems, tingling, tremors, weakness, others Musculoskeletal: denies: back pain, gout, joint pain, joint swelling, muscle pain, muscle stiffness, neck pain, others Integumetry: denies: bruises, change in color, change in hair/nails, dryness, laceration, lesions, lumps, rash, wounds, others Allergic/Immunocompromised: denies: Difficulty Healing, Frequent Infections, Hives, Itching, others Hematologic/Lymphatic: denies: anemia, blood clots, easy bleeding, easy bruis ing, swollen glands, others Endocrine: denies: excessive hunger, excessive sweating, excessive thirst, exc essive urination, flushing, intolerance to cold, intolerance to heat, unexplained weight gain, unexplained weight loss, others Psychiatric: denies: anxiety, bipolar disorder, depression, hopeless, panic disorder, schizophrenia, sleepless, suicidal, others All Other Systems: Reviewed and Negative Physical Exam General Appearance: Moderate Distress HEENT: Normal ENT Inspection, Pharynx Normal, TMs Normal Neck: Full Range of Motion, Non-Tender, Normal, Normal Inspection Respiratory: Chest Non-Tender, Lungs Clear, No Accessory Muscle Use, No Respiratory Distress, Normal Breath Sounds Cardiovascular: No Edema, No JVD, No Murmur, No Gallop, Normal Peripheral Pulses, Regular Rate/Rhythm Breast Exam: Deferred Gastrointestinal: No Organomegaly, Non Tender, No Pulsatile Mass, Normal Bowel Sounds, Soft Genitalia: Deferred Pelvic: Deferred Rectal: Deferred Extremities: No calf tenderness, Normal capillary refill, Normal inspection, Normal range of motion, Non-tender, No pedal edema Musculoskeletal : Apperance: Normal Neurologic: Alert, temporary help agency referral clerk II-XII nml as Tested, No Motor Deficits, Normal Affect, Normal Mood, No Sensory Deficits Cerebellar Function: NOT DONE Reflexes: NOT DONE Skin: Dry, Normal Color, Warm Peripheral Pulses: 3+ Radial (R), 3+ Radial (L) Lymphatic: No Adenopathy EKG EKG : Pulse Rate (adult): 77 Cardiac Rhythm: NSR Was a procedure done? Was a procedure done?: No CP Differential Dx Differential Diagnosis: A-fib, A-Flutter, Angina, Anxiety / Panic Attack, Atrial Dysrhythmia, Electrolyte Disorder, N/A Differential Diagnosis: Angina, Chest Wall Pain, Cholelithiasis, Costochondritis, Esophageal reflux/spasm, Myocardial Infarction, Pericarditis X-Ray, Labs, Meds, VS Vital Signs Date Time Temp Pulse Resp B/P (MAP) Pulse Ox O2 Delivery O2 Flow Rate FiO2 06/20/25 07:57 72 18 149/77 (101) 97 06/20/25 07:57 72 18 97 Room Air 06/20/25 07:36 70 06/20/25 06:51 77 06/20/25 06:45 98.0 78 20 161/113 94 98.0 06/20/25 06:33 77 Lab Test 06/20/25 07:53 06/20/25 06:38 Range/Units Troponin I High Sensitivity 70 *H 39 </=54 ng/L White Blood Count 6.5 4.4-10.8 10^3/uL Red Blood Count 4.92 4.5-5.90 10^6/uL Hemoglobin 15.9 13.5-17.5 g/dL Hematocrit 46.8 41.0-53.0 % Mean Corpuscular Volume 95.0 80.0-100.0 fL Mean Corpuscular Hemoglobin 32.3 H 28.0-32.0 pg Mean Corpuscular Hemoglobin Concent 34.0 32.0-36.0 g/dL Red Cell Distribution Width 13.8 11.8-14.3 % Platelet Count 184 140-450 10^3/uL Mean Platelet Volume 8.5 6.9-10.8 fL Neutrophils (%) (Auto) 64.7 37.0-80.0 % Lymphocytes (%) (Auto) 19.0 10.0-50.0 % Monocytes (%) (Auto) 11.1 0.0-12.0 % Eosinophils (%) (Auto) 4.3 0.0-7.0 % Basophils (%) (Auto) 0.9 0.0-2.0 % Neutrophils # (Auto) 4.2 1.6-8.6 10 ^3/uL Lymphocytes # (Auto) 1.2 0.4-5.4 10 ^3/uL Monocytes # (Auto) 0.7 0-1.3 10 ^3/uL Eosinophils # (Auto) 0.3 0-0.8 10 ^3/uL Basophils # (Auto) 0.1 0-0.2 10 ^3/uL Nucleated Red Blood Cells 0.6 % Sodium Level 139 136-145 mmol/L Potassium Level 4.7 3.5-5.1 mmol/L Chloride Level 108 H 98-107 mmol/L Carbon Dioxide Level 22 20-31 mmol/L Anion Gap 9 5-15 Blood Urea Nitrogen 24 H 9-23 mg/dL Creatinine 1.27 0.700-1.30 mg/dL Glomerular Filtration Rate Calc 60 >90 mL/min BUN/Creatinine Ratio 18.9 10.0-20.0 Serum Glucose 106 74-106 mg/dL Calcium Level 9.2 8.7-10.4 mg/dL B-Type Natriuretic Peptide Pending Patient alert. Came in because of chest pain. History of coronary artery disease. Blood pressure elevated. Was given clonidine. Was given nitroglycerin. EKG reviewed does not show any acute changes. Explained to the patient. Continue monitoring. Time of 1ST Reevaluation: 06:51 Reevaluation 1ST: Unchanged Patient Education/Counseling: Diagnosis, Treatment, Prognosis Family Education/Counseling: No Family Present SEPSIS Sepsis Screen Physician Orders Chest Portable (06/20/25 06:34) B-Type Natriuretic Peptide (06/20/25 06:34) Urinalysis (06/20/25 06:34) Troponin-I Hs (06/20/25 09:34) Electrocardigram (06/20/25 06:36) Electrocardigram (06/20/25 07:36) Electrocardigram (06/20/25 09:36) Vital Signs Date Time Temp Pulse Resp B/P (MAP) Pulse Ox O2 Delivery O2 Flow Rate FiO2 06/20/25 07:57 72 18 149/77 (101) 97 06/20/25 07:57 72 18 97 Room Air 06/20/25 07:36 70 06/20/25 06:51 77 06/20/25 06:45 98.0 78 20 161/113 94 98.0 06/20/25 06:33 77 Laboratory Tests Test 06/20/25 06:38 White Blood Count 6.5 10^3/uL (4.4-10.8) Departure 1 Departure Time of Disposition: 07:03 Impression: Primary Impression: Chest pain of unknown etiology Additional Impression: Demand ischemia Disposition: ADMITTED INPATIENT Admit to: Med Surg Condition: Guarded Critical Care Note Critical Care Time?: Yes (90 min-critical care time only) Stability Stability form required: No Heart Score Heart Score: Heart Score Response (Comments) Value History Slightly Suspicious 0 EKG Normal 0 Age >65 2 Risk Factors >3 or Hx ASHD 2 Troponin Normal limit 0 Total 4 I personally scribed for BALA SLOAN MD ([email or web address]) on 06/20/25 at 06:51. Electronically submitted by Teresa Pantoja ([facility]). I personally scribed for BALA SLOAN MD ([email or web address]) on 06/20/25 at 06:52. Electronically submitted by Teresa Pantoja ([facility]). BALA SLOAN MD Jun 20, 2025 06:51
[2025-06-20] MEDS: NITROGLYCERIN 0.4 MG SL TAB SL ONE (06:55)
[2025-06-20 07:04] LABS: Potassium 4.7 mmol/L (3.5-5.1); Sodium 139 mmol/L (136-145)
[2025-06-20 07:05] LABS: Anion Gap 9 (5-15); Calcium 9.2 mg/dL (8.7-10.4); Carbon Dioxide 22 mmol/L (20-31)
[2025-06-20 07:06] LABS: Hematocrit 46.8 % (41.0-53.0); Hemoglobin 15.9 g/dL (13.5-17.5); Mean Corpuscular Hemoglobin 32.3 pg (28.0-32.0); Mean Corpuscular Volume 95.0 fL (80.0-100.0); Nucleated Red Blood Cells % 0.6 %
[2025-06-20 07:10] LABS: BUN/Creatinine Ratio 18.9 (10.0-20.0); Glucose 106 mg/dL (74-106)
[2025-06-20 07:39] LABS: Blood Urea Nitrogen 24 mg/dL (9-23); Chloride 108 mmol/L (98-107)
--- NOTE | 2025-06-20 08:34 | DVH ---
XY CHEST PORTABLE, HISTORY: sob COMPARISON: XY CHEST XRAY 1 VIEW on DOS: 04/11/25, CHEST PORTABLE on DOS: 08/09/20 XY CHEST XRAY 1 VIEW on DOS: 04/11/25, CHEST PORTABLE on DOS: 08/09/20 TECHNICAL DATA: 1 view of the chest was obtained. FINDINGS: Lines and tubes: None Cardiomediastinal silhouette: normal Pulmonary vasculature: normal Lung expansion: normal Lung airspace: Left basilar scarring. Lung interstitium: normal Pleura: normal Pneumothorax: no Bones: Unremarkable Other: no IMPRESSION: No acute intrathoracic abnormality. Left basilar scarring.
[2025-06-20] MEDS: ENOXAPARIN SOD 120 MG/0.8 ML SYRINGE SC ONE (09:03)
[2025-06-20] MEDS ORDERED: NITROGLYCERIN 0.4 MG SL TAB SL PRN (10:15)
[2025-06-20] MEDS ORDERED: MORPHINE SULFATE INJ 2 MG/ml SYRG IV PRN ×2 (10:15)
--- NOTE | 2025-06-20 10:15 | DVHHP2 ---
History of Present Illness History of Present Illness Patient is 69-year-old male who came to the hospital with a chief complaint of chest pain. Chest pain is substernal and right-sided, acute onset at 1:30 a.m. today, pressure-like, worsened with exertion, no radiation, improved with nitroglycerin. Patient does have shortness of breath with exertion, mainly able to walk around 200 ft and get shortness of breath. Patient continued to have on and off 2 x 10 chest pain ever since he got coronary intervention in April and [facility]. He has a significant past medical history of coronary artery disease with 4 times stent placement in 2011, most recent one is on April 11, 2025. Patient denying any other symptoms including fever, cough, sputum production, chest congestion, motor or sensory deficits. Past medical history: Coronary artery disease with multiple PCI intervention. Five drug-eluting stent. HF MR EF, AAA, hypertension, dyslipidemia, transaminitis, obesity Surgical history: PCI and shockwave IVL to a 99% calcific ruptured LAD plaque (04/12/2025), PTCA in 2011 Family history: Noncontributory Social history: Smoked 15 pack-year cigarettes, denying any other recreational drug use Allergies: Denies Home medication: Patient does not recall what he takes at home Review of Systems Constitutional: No: Fever, Chills, Sweats, Weakness, Malaise, Other Eyes: No: Pain, Vision change, Conjunctivae inflammation, Eyelid inflammation, Other, Redness ENT: No: Ear pain, Ear discharge, Nose pain, Nose discharge, Nose congestion, Mouth pain, Mouth swelling, Throat pain, Throat swelling, Other Respiratory: No: Cough, Dry, Shortness of breath, SOB with excertion, Wheezing, Hemoptysis, Pleuritic Pain, Sputum, Wheezing, Other Cardiovascular: Chest Pain; No: Palpitations, Orthopnea, Paroxysmal Noc. Dyspnea, Edema, Lt Headedness, Other Gastrointestinal: No: Nausea, Vomiting, Abdominal Pain, Diarrhea, Constipation, Melena, Hematochezia, Other Genitourinary: No Dysuria, No Frequency, No Incontinence, No Hematuria, No Retention, No Other Skin: No: Rash, Lesions, Jaundice, Bruising, Other Neurological: No: Weakness, Numbness, Incoordination, Change in speech, Confusion, Seizures, Other Allergies: Coded Allergies: NO KNOWN ALLERGIES (Unverified , 01/22/12) Medications Current Medications Medications Dose Ordered Sig/Ana Route Start Time Stop Time Status Last Admin Dose Admin Morphine Sulfate 2 mg Q4HPRN PRN IV 06/20/25 10:15 UNV Enoxaparin Sodium 40 mg DAILY SC 06/21/25 10:00 UNV Nitroglycerin 0.4 mg Q5MINP PRN SL 06/20/25 10:15 UNV Morphine Sulfate 2 mg Q30M PRN IV 06/20/25 10:15 UNV Aspirin 81 mg DAILY PO 06/21/25 10:00 UNV Carvedilol 3.125 mg BID PO 06/20/25 22:00 UNV Clopidogrel Bisulfate 75 mg DAILY PO 06/21/25 10:00 UNV Empaglifozin 10 mg DAILY PO 06/21/25 10:00 UNV Lisinopril 20 mg DAILY PO 06/21/25 10:00 UNV Pantoprazole Sodium 40 mg DAILY PO 06/21/25 10:00 UNV Spironolactone 25 mg DAILY PO 06/21/25 10:00 UNV Patient Own Medication 20 mg HS PO 06/20/25 22:00 UNV Exam Vital Signs Vital Signs Date Time Temp Pulse Resp B/P (MAP) Pulse Ox O2 Delivery O2 Flow Rate FiO2 06/20/25 09:34 67 06/20/25 07:57 18 149/77 (101) 97 06/20/25 07:57 Room Air 06/20/25 06:45 98.0 98.0 Labs/Xrays Labs Test 06/20/25 10:05 06/20/25 06:38 Range/Units White Blood Count 6.5 4.4-10.8 10^3/uL Red Blood Count 4.92 4.5-5.90 10^6/uL Hemoglobin 15.9 13.5-17.5 g/dL Hematocrit 46.8 41.0-53.0 % Mean Corpuscular Volume 95.0 80.0-100.0 fL Mean Corpuscular Hemoglobin 32.3 H 28.0-32.0 pg Mean Corpuscular Hemoglobin Concent 34.0 32.0-36.0 g/dL Red Cell Distribution Width 13.8 11.8-14.3 % Platelet Count 184 140-450 10^3/uL Mean Platelet Volume 8.5 6.9-10.8 fL Neutrophils (%) (Auto) 64.7 37.0-80.0 % Lymphocytes (%) (Auto) 19.0 10.0-50.0 % Monocytes (%) (Auto) 11.1 0.0-12.0 % Eosinophils (%) (Auto) 4.3 0.0-7.0 % Basophils (%) (Auto) 0.9 0.0-2.0 % Neutrophils # (Auto) 4.2 1.6-8.6 10 ^3/uL Lymphocytes # (Auto) 1.2 0.4-5.4 10 ^3/uL Monocytes # (Auto) 0.7 0-1.3 10 ^3/uL Eosinophils # (Auto) 0.3 0-0.8 10 ^3/uL Basophils # (Auto) 0.1 0-0.2 10 ^3/uL Nucleated Red Blood Cells 0.6 % Sodium Level 139 136-145 mmol/L Potassium Level 4.7 3.5-5.1 mmol/L Chloride Level 108 H 98-107 mmol/L Carbon Dioxide Level 22 20-31 mmol/L Anion Gap 9 5-15 Blood Urea Nitrogen 24 H 9-23 mg/dL Creatinine 1.27 0.700-1.30 mg/dL Glomerular Filtration Rate Calc 60 >90 mL/min BUN/Creatinine Ratio 18.9 10.0-20.0 Serum Glucose 106 74-106 mg/dL Calcium Level 9.2 8.7-10.4 mg/dL B-Type Natriuretic Peptide 121.27 0-100 pg/mL SEPSIS Sepsis Screen Date sepsis recognized/suspect: Jun 20, 2025 Time Sepsis recognized/suspect: 0650 Recent Procedure: No On Antibiotic Therapy: No Respiratory Rate >20: No Heart Rate >90: No Temp<36 C (96.8 F) or >38.3 C: No SBP <90 or MAP <65 mmHG: No New Acute Mental Status Change: No Is the patient on CPAP, BIPAP,: No Physician Orders Chest Portable (06/20/25 06:34) Urinalysis (06/20/25 06:34) Troponin-I Hs (06/20/25 09:34) Electrocardigram (06/20/25 06:36) Electrocardigram (06/20/25 07:36) Electrocardigram (06/20/25 09:36) Admit (06/20/25 10:07) Code Status (06/20/25 10:07) Vital Signs .PER UNIT PROTOCOL (06/20/25 10:07) Review Orders With Adm.Md (06/20/25 10:07) Regular Diet (06/20/25 Lunch) Notify Md Of Changes From Base (06/20/25 10:07) Advance Directive (06/20/25 10:07) Patient Condition (06/20/25 10:07) Allergies (06/20/25 10:07) Hemoglobin A1c (06/20/25 10:07) Morphine Sulfate Injection (06/20/25 10:15) Enoxaparin Sodium (Lovenox) (06/21/25 10:00) Nitroglycerin Sublingual (Ntrostat Subli (06/20/25 10:15) Morphine Sulfate Injection (06/20/25 10:15) Oxygen By Nasal Cannula (06/20/25 10:07) Stat Ekg For Chest Pain (06/20/25 10:07) Notify Md Of Changes From Base (06/20/25 10:07) Roller Skate Assembler For 24 Hours (06/20/25 10:07) Emergency Dysrhythmia Protocol (06/20/25 10:07) Rhythm Strips Once Every Shift (06/20/25 10:07) Aspirin Enteric Coated Tablet (Ecotrin E (06/21/25 10:00) Carvedilol Tablet (Coreg Tablet) (06/20/25 22:00) Clopidogrel Bisulfate (Plavix) (06/21/25 10:00) Empagliflozin (Jardiance) (06/21/25 10:00) Lisinopril Tablet (Zestril Tablet) (06/21/25 10:00) Pantoprazole Tablet (Protonix Tablet) (06/21/25 10:00) Spironolactone (Aldactone) (06/21/25 10:00) (Nf) Rosuvastatin Calcium (Crestor) (06/20/25 22:00) Vital Signs Date Time Temp Pulse Resp B/P (MAP) Pulse Ox O2 Delivery O2 Flow Rate FiO2 06/20/25 09:34 67 06/20/25 07:57 72 18 149/77 (101) 97 06/20/25 07:57 72 18 97 Room Air 06/20/25 07:36 70 06/20/25 06:51 77 06/20/25 06:45 98.0 78 20 161/113 94 98.0 06/20/25 06:33 77 Laboratory Tests Test 06/20/25 06:38 White Blood Count 6.5 10^3/uL (4.4-10.8) Medications Medications Dose Ordered Sig/Ana Route Start Time Stop Time Status Last Admin Dose Admin Enoxaparin Sodium 120 mg ONCE ONCE SC 06/20/25 09:00 06/20/25 09:01 DC 06/20/25 09:03 120 MG Assessment/Plan Assessment/Plan Acute chest pain NSTEMI type 2 versus type 1 History of coronary artery disease with five stent placement Hypertension -aspirin 81 mg p.o. daily -Plavix 75 mg p.o. daily -Jardiance 10 mg p.o. daily -lisinopril 20 mg p.o. daily -spironolactone 25 mg p.o. daily -atorvastatin 40 mg p.o. daily -cardiology consultation -EKG: No significant ST or T depression, sinus rhythm -target LDL less than 50. Initiated ezetimibe 10 mg p.o. daily. -prn nitroglycerin for chest pain Coronary angiogram on 04/12/[address] Sawyer 1. sp PCI and shockwave IVL to a 99% calcific ruptured LAD plaque 2. 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 OM1 old stent INBOUND SALES ADVISOR Dyslipidemia -atorvastatin 80 mg p.o. daily -ezetimibe 10 mg p.o. daily -repeat lipid panel in 6-8 months Chronic HFrEF -continue management of coronary artery disease Prediabetes HGB A1c 5.8 -continue lifestyle modification Former smoker History of poor medical compliance History of infrarenal abdominal aorta aneurysm 3.2 cm -advised abdominal ultrasound in outpatient setting Obesity BMI 37.4 -lifestyle modification PUD prophylaxis with Protonix DVT prophylaxis with enoxaparin Goals of care discussed greater than 24 minutes, full code status. Plan discussed with Dr. Barber Plan discussed with: Patient, Other My Orders Orders - KESHA EDWARDS RESIDENT Procedure Category Date Status Time Admit ADMIT 06/20/25 Transmitted 10:07 Code Status CODE 06/20/25 Transmitted 10:07 Vital Signs KATI 06/20/25 In Process 10:07 Review Orders With [facility] 06/20/25 In Process Adm. 10:07 Regular Diet DIET 06/20/25 Transmitted Lunch Notify Md Of Changes [facility] 06/20/25 In Process From Base 10:07 Advance Directive [facility] 06/20/25 In Process 10:07 Patient Condition ORDERS 06/20/25 Transmitted 10:07 Allergies [facility] 06/20/25 In Process 10:07 Hemoglobin A1c LAB 06/20/25 Logged 10:07 Morphine Sulfate PHA 06/20/25 Logged Injection 10:15 Enoxaparin Sodium PHA 06/21/25 Logged (Lovenox) 10:00 Nitroglycerin [facility] 06/20/25 Logged Sublingual (Ntrostat 10:15 Morphine Sulfate PHA 06/20/25 Logged Injection 10:15 Oxygen By Nasal RT 06/20/25 Transmitted Cannula 10:07 Stat Ekg For Chest [facility] 06/20/25 In Process Pain 10:07 Notify Of Changes [facility] 06/20/25 In Process From Base 10:07 Roller Skate Assembler For [facility] 06/20/25 In Process 24 Hours 10:07 Emergency Dysrhythmia [facility] 06/20/25 In Process Protocol 10:07 Rhythm Strips Once [facility] 06/20/25 In Process Every Shift 10:07 Aspirin Enteric PHA 06/21/25 Logged Coated Tablet 10:00 Carvedilol Tablet [facility] 06/20/25 Logged (Coreg Tablet) 22:00 Clopidogrel Bisulfate PHA 06/21/25 Logged (Plavix) 10:00 Empagliflozin PHA 06/21/25 Logged (Jardiance) 10:00 Lisinopril Tablet [facility] 06/21/25 Logged (Zestril Tablet) 10:00 Pantoprazole Tablet [facility] 06/21/25 Logged (Protonix Tablet) 10:00 Spironolactone PHA 06/21/25 Logged (Aldactone) 10:00 (Nf) Rosuvastatin PHA 06/20/25 Logged Calcium (Crestor) 22:00 Date of Service: Jun 20, 2025 Billing Provider: SUNI BARBER MD Common Visit Codes: [id number] INP/OBS CARE (HIGH) Secondary Visit Codes: [id number] CARE PLAN 30 MINUTES KESHA EDWARDS RESIDENT Jun 20, 2025 10:14
[2025-06-20 11:25] VITALS: PULSE 69; RESP 15; O2SAT 97
[2025-06-20 12:21] LABS: Urine Protein, UAD Negative (Negative)
[2025-06-20] MEDS: EZETIMIBE 10 MG TAB PO ONE (13:35)
--- NOTE | 2025-06-20 16:26 | ECG ---
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
--- NOTE | 2025-06-20 19:09 | DVHINCON2 ---
Date of service: Jun 21, 2025 History of Present Illness 69 yo M with hx of cad s/p pci in 2011 and again last month, ISR of LAD, multivessel cad, dm, htn obesity admitted for chest pain and sob found to have mild elevated trop. ecg shows SR< non specific st changes. lvef 40% on last echo. pt had pci to lad with me with MAILE. pt is on dapt Past Medical History reviewed Family History: Patient reports no known family medical history. Allergies: Coded Allergies: NO KNOWN ALLERGIES (Unverified , 01/22/12) Home Meds Active Scripts Rosuvastatin Calcium (Crestor) 20 Mg Tab, 20 MG PO HS for 30 Days, #30 TAB Prov:[facility] 04/13/25 Spironolactone (Aldactone) 25 Mg Tab, 25 MG PO DAILY for 30 Days, #30 TAB Prov:[facility] 04/13/25 Lisinopril (Lisinopril) 20 Mg Tab, 20 MG PO DAILY for 30 Days, #30 TAB Prov:[facility] 04/13/25 Empagliflozin (Jardiance) 10 Mg Tab, 10 MG PO DAILY for 30 Days, #30 TAB Prov:[facility] 04/13/25 Clopidogrel Bisulfate (CLOPIDOGREL) 75 Mg Tab, 75 MG PO DAILY for 30 Days, #30 TAB Prov:[facility] 04/13/25 Carvedilol (COREG) 3.125 Mg Tab, 3.125 MG PO BID for 30 Days, #60 TAB Prov:[facility] 04/13/25 Aspirin (Aspirin Low Dose) 81 Mg Tab, 81 MG PO DAILY for 30 Days, #30 TAB Prov:[facility] 04/13/25 Cholecalciferol (VITAMIN D3) 2,000 Unit Tab, 1 TAB PO DAILY for 30 Days, #30 TAB 2 Refills Prov:ANASTACIA BARRIENTOS MD 08/14/20 Pantoprazole Sodium Sesquihydr (Protonix) 40 Mg Tab, 40 MG PO DAILY for 30 Days, #30 TAB Prov:ANASTACIA BARRIENTOS MD 08/14/20 Current Medications Current Medications Medications (Trade) Dose Ordered Sig/Ana Route PRN Reason Start Time Stop Time Status Last Admin Morphine Sulfate 2 mg Q4HPRN PRN IV SEVERE PAIN (7-10 PAIN SCALE) 06/20/25 10:15 Enoxaparin Sodium (Lovenox) 40 mg DAILY SC 06/21/25 10:00 Nitroglycerin (Ntrostat Sublingual) 0.4 mg Q5MINP PRN SL FOR CHEST PAIN 06/20/25 10:15 Morphine Sulfate 2 mg Q30M PRN IV FOR CHEST PAIN 06/20/25 10:15 Aspirin (Ecotrin Enteric Coated Tablet) 81 mg DAILY PO 06/21/25 10:00 Carvedilol (Coreg Tablet) 3.125 mg BID PO 06/20/25 22:00 Clopidogrel Bisulfate (Plavix) 75 mg DAILY PO 06/21/25 10:00 Empaglifozin (Jardiance) 10 mg DAILY PO 06/21/25 10:00 Lisinopril (Zestril Tablet) 20 mg DAILY PO 06/21/25 10:00 Pantoprazole Sodium (Protonix Tablet) 40 mg DAILY@0700 PO 06/21/25 07:00 Spironolactone (Aldactone) 25 mg DAILY PO 06/21/25 10:00 Atorvastatin Calcium (Lipitor) 40 mg HS PO 06/20/25 22:00 06/20/25 11:04 DC Atorvastatin Calcium (Lipitor) 80 mg HS PO 06/20/25 22:00 EZETIMIBE (Zetia) 10 mg DAILY PO 06/21/25 10:00 Review of Systems +chest pain +sob +fatigue Vital Signs Vital Signs Date Time Temp Pulse Resp B/P (MAP) Pulse Ox O2 Delivery O2 Flow Rate FiO2 06/20/25 17:00 98.0 82 14 146/94 (111) 95 98.0 06/20/25 11:25 Room Air* 0 21 Physical Exam nad s1 s2 rrr ctab soft nt/nd no edema Labs/Diagnostic Data Labs Test 06/20/25 11:59 06/20/25 11:30 06/20/25 10:05 06/20/25 06:38 Range/Units Urine Color Light-yellow Yellow Urine Clarity Clear Clear Urine pH 5.0 5.0-9.0 Urine Specific [place] 1.016 1.001-1.035 Urine Protein Negative Negative Urine Ketones Negative Negative Urine Blood Trace H Negative /uL Urine Nitrite Negative Negative Urine Bilirubin Negative Negative Urine Urobilinogen Normal Negative mg/dL Urine Leukocyte Esterase Negative Negative /uL Urine RBC 2 0 - 3 /hpf Urine Microscopic WBC < 1 0-3 /HPF Urine Squamous Epithelial Cells None seen <5 /hpf Urine Bacteria None seen None Seen /hpf Urine Glucose Normal Normal mg/dL Hemoglobin A1c 5.5 <5.7 % A1C Troponin I High Sensitivity 174 *H </=54 ng/L White Blood Count 6.5 4.4-10.8 10^3/uL Red Blood Count 4.92 4.5-5.90 10^6/uL Hemoglobin 15.9 13.5-17.5 g/dL Hematocrit 46.8 41.0-53.0 % Mean Corpuscular Volume 95.0 80.0-100.0 fL Mean Corpuscular Hemoglobin 32.3 H 28.0-32.0 pg Mean Corpuscular Hemoglobin Concent 34.0 32.0-36.0 g/dL Red Cell Distribution Width 13.8 11.8-14.3 % Platelet Count 184 140-450 10^3/uL Mean Platelet Volume 8.5 6.9-10.8 fL Neutrophils (%) (Auto) 64.7 37.0-80.0 % Lymphocytes (%) (Auto) 19.0 10.0-50.0 % Monocytes (%) (Auto) 11.1 0.0-12.0 % Eosinophils (%) (Auto) 4.3 0.0-7.0 % Basophils (%) (Auto) 0.9 0.0-2.0 % Neutrophils # (Auto) 4.2 1.6-8.6 10 ^3/uL Lymphocytes # (Auto) 1.2 0.4-5.4 10 ^3/uL Monocytes # (Auto) 0.7 0-1.3 10 ^3/uL Eosinophils # (Auto) 0.3 0-0.8 10 ^3/uL Basophils # (Auto) 0.1 0-0.2 10 ^3/uL Nucleated Red Blood Cells 0.6 % Sodium Level 139 136-145 mmol/L Potassium Level 4.7 3.5-5.1 mmol/L Chloride Level 108 H 98-107 mmol/L Carbon Dioxide Level 22 20-31 mmol/L Anion Gap 9 5-15 Blood Urea Nitrogen 24 H 9-23 mg/dL Creatinine 1.27 0.700-1.30 mg/dL Glomerular Filtration Rate Calc 60 >90 mL/min BUN/Creatinine Ratio 18.9 10.0-20.0 Serum Glucose 106 74-106 mg/dL Calcium Level 9.2 8.7-10.4 mg/dL B-Type Natriuretic Peptide 121.27 0-100 pg/mL Assessment nstemi cad mild LV dysfunction, NYHA class III ckd obesity pre diabetes tobacco remote Plan/Recommendation cont dapt [facility] images reviewed personally, s/p pci recommend repeat angiogram to assess CAD pt is aware he has 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
[2025-06-20 20:10] VITALS: PULSE 92; RESP 16; O2SAT 96
[2025-06-20 21:37] VITALS: PULSE 81; RESP 20
[2025-06-20 21:38] VITALS: BP 133/101; PULSE 81; RESP 20; TEMP 97.9; O2SAT 96
[2025-06-20] MEDS ORDERED: ATORVASTATIN 20 MG TAB PO SCH (22:00)
[2025-06-20] MEDS: ATORVASTATIN 20 MG TAB PO SCH (23:05)
[2025-06-20] MEDS: CARVEDILOL 3.125 MG TAB PO SCH (23:05)
[2025-06-21] VITALS (12 sets, daily range): BP systolic 94–155; BP diastolic 56–107; PULSE 66–85; RESP 14–20; TEMP 97.3–98.9; O2SAT 95–97
[2025-06-21] MEDS: PANTOPRAZOLE 40 MG TAB PO SCH (06:27)
[2025-06-21 06:36] LABS: Potassium 4.7 mmol/L (3.5-5.1); Sodium 141 mmol/L (136-145)
[2025-06-21 06:37] LABS: Anion Gap 9 (5-15); Carbon Dioxide 25 mmol/L (20-31); Chloride 107 mmol/L (98-107); Hematocrit 45.9 % (41.0-53.0); Hemoglobin 15.5 g/dL (13.5-17.5); Mean Corpuscular Hemoglobin 32.2 pg (28.0-32.0); Mean Corpuscular Volume 95.1 fL (80.0-100.0); Nucleated Red Blood Cells % 0.2 %
[2025-06-21 06:38] LABS: Calcium 9.3 mg/dL (8.7-10.4)
[2025-06-21 06:43] LABS: BUN/Creatinine Ratio 18.5 (10.0-20.0); Blood Urea Nitrogen 22 mg/dL (9-23); Glucose 93 mg/dL (74-106)
[2025-06-21 07:07] LABS: INR 1.02 (0.9-1.15); Prothrombin Time 10.8 sec (9.3-11.8)
[2025-06-21] MEDS: LISINOPRIL 20 MG TAB PO SCH (09:57)
[2025-06-21] MEDS: CLOPIDOGREL BISULFATE 75 MG TAB PO SCH (09:57)
[2025-06-21] MEDS: ASPirin-EC 81 mg tab PO SCH (09:57)
[2025-06-21] MEDS: SPIRONOLACTONE 25 MG TAB PO SCH (09:57)
[2025-06-21] MEDS: EMPAGLIFLOZIN 10 MG TAB PO SCH (09:57)
[2025-06-21] MEDS: EZETIMIBE 10 MG TAB PO SCH (10:00)
[2025-06-21] MEDS: ENOXAPARIN SOD 40 MG/0.4 ML SYRINGE SC SCH (10:00)
[2025-06-21] MEDS: IODIXANOL 320MG/ML 100ML BTL IV ONE ×2 (10:48→11:00)
[2025-06-21] MEDS: ANGIOMAX 250 MG VIAL IV ONE (10:53)
[2025-06-21] MEDS: fentaNYL CITRATE 100 MCG/2 ML VL ONE (10:54)
[2025-06-21] MEDS: LIDOCAINE 2%HCL (LOCAL ANESTH.) INJ 20ML MDV ONE (10:54)
[2025-06-21] MEDS: SODIUM CHL 0.9% 0 ML ONE (10:54)
[2025-06-21] MEDS: MIDAZOLAM HCL 2MG/2ML 2ml VIAL (1mg/ml) ONE (10:54)
[2025-06-21] MEDS: VERAPAMIL 2.5MG/ML INJ 2ML VIAL IV ONE (10:54)
[2025-06-21] MEDS: HEPARIN SODIUM (PORCINE) 5000 UNITS/ML 1ML VIAL ONE (11:35)
--- NOTE | 2025-06-21 11:40 | DVHOP2 ---
Operative Report Operative Report CARDIAC PRODUCT SAFETY ASSOCIATE PROCEDURE [place]PORT [place], [place] Date of Service: 06/21/25 Concrete Pipe Making Machine Operator: Nancy He MD PROCEDURES PERFORMED: Coronary angiogram, conscious sedation administration and supervision, less than 15 minutes; fluoroscopy use and interpretation. PREOPERATIVE DIAGNOSES: nstemi POSTOP DIAGNOSIS: patent lad stenet DESCRIPTION OF PROCEDURE: The patient or appropriate family signed informed consent understanding the risks, benefits and alternatives of the procedure, they wished to proceed. The patient was brought to the cardiac poultry farm laborer in n.p.o. state. The patient was prepped in a sterile fashion. Sedation was used per cardiac cath protocol. I administered 2 mL of 2% lidocaine to the right wrist. With an antegrade front wall puncture. I cannulated the right radial artery and placed a 6-Turkish Glidesheath slender. Next, an intra-arterial spasmolytic was administered. Next, a - 5[place] cath eter a were used for coronary angiogram and LVEDP measurement and pressure pullback. At the completion of procedure, all guides and wires were removed, and there were no immediate complications. FINDINGS: RCA: Moderate vessel off the right sinus of Valsalva, there is a prox RCA COMMUNICATIONS AGENT. (similar to 2012) LEFT MAIN: Moderate size left main, it bifurcates into LAD and circumflex. mild plaque CIRCUMFLEX: Moderate caliber vessel coming off the left main. prox CX has stent with mild ISR. OM1 is COMMUNICATIONS AGENT with antegrade collaterals .distal CX in av groove has moderate 40% stenosis LAD: LAD is a moderate caliber vessel coming of the left main. prox LAD is patent with 40% plaque unchanged from previous cath . mid LAD has a patent stent widely open distal to apical lad has a 70% stenosis small vessel CONCLUSIONS: 1. widely patent LAD stent 2. known RCA and OM COMMUNICATIONS AGENT PLAN: Aggressive risk factor modification and medical management for the patient. DAPT x 1 year uninterrupted start ranexa start isosorbide cont to monitor aortic stenosis which is moderate NANCY HE MD Jun 21, 2025 11:40
[2025-06-21] MEDS: ISOSORBIDE MONONITRATE ER 60 MG TAB PO SCH (12:18)
--- NOTE | 2025-06-21 16:32 | DVHPN2 ---
Subjective 69-year-old male who was admitted for angina He had a heart catheterization today which showed no significant or serious stenosis and therefore medical management was recommended He already takes aspirin and Plavix at home Changes from previous H/P or p: Changes Eyes: No Pain, No Vision change, No Conjunctivae inflammation, No Eyelid inflammation, No Other, No Redness ENT: No Ear pain, No Ear discharge, No Nose pain, No Nose discharge, No Nose congestion, No Mouth pain, No Mouth swelling, No Throat pain, No Throat swelling, No Other Cardiovascular: Chest Pain; No Palpitations, No Orthopnea, No Paroxysmal Noc. Dyspnea, No Edema, No Lt Headedness, No Other Respiratory: No Cough, No Dry, No Shortness of breath, No SOB with excertion, No Wheezing, No Hemoptysis, No Pleuritic Pain, No Sputum, No Other Gastrointestinal: No Nausea, No Vomiting, No Abdominal Pain, No Diarrhea, No Constipation, No Melena, No Hematochezia, No Other Genitourinary: No Dysuria, No Frequency, No Incontinence, No Hematuria, No Retention, No Other Skin: No Rash, No Lesions, No Jaundice, No Bruising, No Other Objective Vitals Vital Signs Date Time Temp Pulse Resp B/P (MAP) Pulse Ox O2 Delivery O2 Flow Rate FiO2 06/21/25 12:25 70 14 140/97 (111) 96 06/21/25 11:31 97.8 97.8 06/20/25 21:37 Room Air* 0 21 Intake/Output Intake and Output 06/21/25 07:00 Intake Total 0 ml Balance 0 ml Intake Oral 0 ml # Voids 2 General Appearance: Alert, Oriented X3 Lungs: Clear to auscultation, Normal air movement Cardiovascular: Regular rate, Normal S1, Normal S2 Abdomen: Normal bowel sounds, Soft, No tenderness Extremities: No edema Medications Current Medications Medications Dose Ordered Sig/Ana Route Start Time Stop Time Status Last Admin Dose Admin Morphine Sulfate 2 mg Q4HPRN PRN IV 06/20/25 10:15 Enoxaparin Sodium 40 mg DAILY SC 06/21/25 10:00 Nitroglycerin 0.4 mg Q5MINP PRN SL 06/20/25 10:15 Morphine Sulfate 2 mg Q30M PRN IV 06/20/25 10:15 Aspirin 81 mg DAILY PO 06/21/25 10:00 Carvedilol 3.125 mg BID PO 06/20/25 22:00 06/20/25 23:05 3.125 MG Clopidogrel Bisulfate 75 mg DAILY PO 06/21/25 10:00 Empaglifozin 10 mg DAILY PO 06/21/25 10:00 Lisinopril 20 mg DAILY PO 06/21/25 10:00 Pantoprazole Sodium 40 mg DAILY@0700 PO 06/21/25 07:00 Spironolactone 25 mg DAILY PO 06/21/25 10:00 Atorvastatin Calcium 80 mg HS PO 06/20/25 22:00 06/20/25 23:05 80 MG EZETIMIBE 10 mg DAILY PO 06/21/25 10:00 Ranolazine 500 mg BID PO 06/21/25 22:00 Isosorbide Mononitrate 30 mg DAILY PO 06/21/25 11:45 06/21/25 12:18 30 MG Laboratory Results Laboratory Tests 06/21/25 05:01 Chemistry Test 06/21/25 05:01 Calcium Level 9.3 mg/dL (8.7-10.4) Coagulation Test 06/21/25 05:01 Prothrombin Time 10.8 sec (9.3-11.8) Prothrombin Time INR 1.02 (0.9-1.15) Urinalysis Test 06/20/25 11:59 Urine Color Light-yellow (Yellow) Urine Clarity Clear (Clear) Urine pH 5.0 (5.0-9.0) Urine Specific [place] 1.016 (1.001-1.035) Urine Protein Negative (Negative) Urine Ketones Negative (Negative) Urine Blood Trace /uL (Negative) H Urine Nitrite Negative (Negative) Urine Bilirubin Negative (Negative) Urine Urobilinogen Normal mg/dL (Negative) Urine Leukocyte Esterase Negative /uL (Negative) Urine RBC 2 /hpf (0 - 3) Urine Microscopic WBC < 1 /HPF (0-3) Urine Squamous Epithelial Cells None seen /hpf (<5) Urine Bacteria None seen /hpf (None Seen) Urine Glucose Normal mg/dL (Normal) Assessment/Plan Assessment/Plan NSTEMI Coronary artery disease Mild left ventricular dysfunction class 3 Chronic kidney disease Prediabetic Former Tobacco user Obesity Dyslipidemia Chronic heart failure with reduced ejection fraction Plan Aspirin Plavix Lipitor Coreg Jardiance Zetia Isosorbide mononitrate Lisinopril Ranexa Monitor overnight Discharge planning for tomorrow Full code Advance directives discussed for 17 minute Plan discussed with: Patient Date of Service: Jun 21, 2025 Billing Provider: FERCHO SHARMA MD Common Visit Codes: [id number] INP/OBS CARE(HIGH) Secondary Visit Codes: [id number] CARE PLAN 30 MINUTES FERCHO SHARMA MD Jun 21, 2025 16:32
[2025-06-21] MEDS: RANOLAZINE ER 500 MG TAB PO SCH (21:14)
--- NOTE | 2025-06-22 00:22 | ECG ---
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
--- NOTE | 2025-06-22 00:23 | ECG ---
[facility] Test Date: 2025-06-20 Test Time: 09:34:17 Pat Name: RACHAEL JOHNSON Department: ED Room: [facility]2T B Gender: M [employer]: SATHISH : 1955 Requested By: BALA SLOAN Order Number: [id number] Reading MD: Jenaro Robledo Measurements Intervals [place] Rate: 67 P: 59 PA: 153 QRS: 76 QRSD: 111 T: 16 QT: 395 QTc: 417 Interpretive Statements Sinus rhythm Low voltage, precordial leads Abnormal inferior Q waves Borderline repolarization abnormality Minimal ST elevation, lateral leads Electronically Signed On 06-28-2025 13:39:43 PDT by Jenaro Robledo Please click the below link to view image of tracing.
[2025-06-22 01:00] VITALS: BP 105/68; PULSE 77; RESP 18; TEMP 98.1; O2SAT 97
[2025-06-22 05:00] VITALS: BP 128/82; PULSE 93; RESP 19; TEMP 98; O2SAT 96
[2025-06-22 06:06] LABS: Hematocrit 47.9 % (41.0-53.0); Hemoglobin 15.9 g/dL (13.5-17.5); Mean Corpuscular Hemoglobin 31.8 pg (28.0-32.0); Mean Corpuscular Volume 95.6 fL (80.0-100.0); Nucleated Red Blood Cells % 0.1 %
[2025-06-22 06:21] LABS: Chloride 105 mmol/L (98-107); Potassium 4.2 mmol/L (3.5-5.1); Sodium 139 mmol/L (136-145)
[2025-06-22 06:22] LABS: Anion Gap 9 (5-15); Calcium 9.6 mg/dL (8.7-10.4); Carbon Dioxide 25 mmol/L (20-31)
[2025-06-22 06:27] LABS: BUN/Creatinine Ratio 14.4 (10.0-20.0); Blood Urea Nitrogen 16 mg/dL (9-23); Glucose 102 mg/dL (74-106)
[2025-06-22 06:28] LABS: Magnesium 2.0 mg/dL (1.6-2.6)
[2025-06-22 06:57] LABS: Triglycerides 103 mg/dL (< 150)
[2025-06-22 06:58] LABS: Cholesterol 128 mg/dL (< 200); HDL Cholesterol 48 mg/dL (40-59)
[2025-06-22 08:00] VITALS: PULSE 74; PULSE 75; RESP 16; O2SAT 98
[2025-06-22 08:43] VITALS: BP 140/92; PULSE 74; RESP 16; TEMP 97.6; O2SAT 98
[2025-06-22] MEDS ORDERED: RANO500T3 PO (09:49)
[2025-06-22] MEDS ORDERED: EZET-10 PO (09:49)
[2025-06-22] MEDS ORDERED: ISOS1TAB28 PO (09:49)
--- NOTE | 2025-06-22 09:52 | DVHDS2 ---
Discharge Summary Date of Admission Jun 20, 2025 at 10:07 Date of Discharge: Jun 22, 2025 Labs/Diagnostic Data: Laboratory Results Test 06/22/25 05:18 06/21/25 05:01 06/20/25 11:59 06/20/25 11:30 White Blood Count 5.3 10^3/uL (4.4-10.8) Red Blood Count 5.01 10^6/uL (4.5-5.90) Hemoglobin 15.9 g/dL (13.5-17.5) Hematocrit 47.9 % (41.0-53.0) Mean Corpuscular Volume 95.6 fL (80.0-100.0) Mean Corpuscular Hemoglobin 31.8 pg (28.0-32.0) Mean Corpuscular Hemoglobin Concent 33.3 g/dL (32.0-36.0) Red Cell Distribution Width 14.0 % (11.8-14.3) Platelet Count 172 10^3/uL (140-450) Mean Platelet Volume 8.5 fL (6.9-10.8) Neutrophils (%) (Auto) 67.0 % (37.0-80.0) Lymphocytes (%) (Auto) 15.3 % (10.0-50.0) Monocytes (%) (Auto) 13.2 % (0.0-12.0) Eosinophils (%) (Auto) 4.0 % (0.0-7.0) Basophils (%) (Auto) 0.5 % (0.0-2.0) Neutrophils # (Auto) 3.6 10 ^3/uL (1.6-8.6) Lymphocytes # (Auto) 0.8 10 ^3/uL (0.4-5.4) Monocytes # (Auto) 0.7 10 ^3/uL (0-1.3) Eosinophils # (Auto) 0.2 10 ^3/uL (0-0.8) Basophils # (Auto) 0 10 ^3/uL (0-0.2) Nucleated Red Blood Cells 0.1 % Sodium Level 139 mmol/L (136-145) Potassium Level 4.2 mmol/L (3.5-5.1) Chloride Level 105 mmol/L (98-107) Carbon Dioxide Level 25 mmol/L (20-31) Anion Gap 9 (5-15) Blood Urea Nitrogen 16 mg/dL (9-23) Creatinine 1.11 mg/dL (0.700-1.30) Glomerular Filtration Rate Calc 71 mL/min (>90) BUN/Creatinine Ratio 14.4 (10.0-20.0) Serum Glucose 102 mg/dL (74-106) Calcium Level 9.6 mg/dL (8.7-10.4) Magnesium Level 2.0 mg/dL (1.6-2.6) Triglycerides Level 103 mg/dL (< 150) Cholesterol Level 128 mg/dL (< 200) LDL Cholesterol 65 mg/dL (< 100) HDL Cholesterol 48 mg/dL (40-59) Prothrombin Time 10.8 sec (9.3-11.8) Prothrombin Time INR 1.02 (0.9-1.15) Urine Color Light-yellow (Yellow) Urine Clarity Clear (Clear) Urine pH 5.0 (5.0-9.0) Urine Specific [place] 1.016 (1.001-1.035) Urine Protein Negative (Negative) Urine Ketones Negative (Negative) Urine Blood Trace /uL (Negative) Urine Nitrite Negative (Negative) Urine Bilirubin Negative (Negative) Urine Urobilinogen Normal mg/dL (Negative) Urine Leukocyte Esterase Negative /uL (Negative) Urine RBC 2 /hpf (0 - 3) Urine Microscopic WBC < 1 /HPF (0-3) Urine Squamous Epithelial Cells None seen /hpf (<5) Urine Bacteria None seen /hpf (None Seen) Urine Glucose Normal mg/dL (Normal) Hemoglobin A1c 5.5 % A1C (<5.7) Test 06/20/25 10:05 06/20/25 06:38 Troponin I High Sensitivity 174 ng/L (</=54) B-Type Natriuretic Peptide 121.27 pg/mL (0-100) Other Laboratory Tests 06/22/25 05:18 Brief Hx & Hospital Course: Final diagnoses: NSTEMI Coronary artery disease Mild left ventricular dysfunction class 3 Chronic kidney disease Prediabetic Former Tobacco user Obesity Dyslipidemia Chronic heart failure with reduced ejection fraction He was seen by Cardiology and Dr. Sawyer did a heart catheterization which showed stable coronary artery disease and medical management was recommended Ranexa and Imdur was added He is to continue taking the other home medications which include aspirin and Coreg and Plavix and Jardiance and lisinopril and Crestor and Aldactone Condition at Discharge: Stable Final Diagnosis/Problems List NSTEMI Coronary artery disease Mild left ventricular dysfunction class 3 Chronic kidney disease Prediabetic Former Tobacco user Obesity Dyslipidemia Chronic heart failure with reduced ejection fraction Discharge Disposition: Home SNF Discharge Will this Physician continue t: No Discharge Instruct/Medications Scheduled Aspirin (Aspirin Low Dose), 81 MG PO DAILY Carvedilol (Coreg), 3.125 MG PO BID Cholecalciferol (Vitamin D3), 1 TAB PO DAILY Clopidogrel Bisulfate (Clopidogrel), 75 MG PO DAILY Empagliflozin (Jardiance), 10 MG PO DAILY Lisinopril (Lisinopril), 20 MG PO DAILY Pantoprazole Sodium Sesquihydr (Protonix), 40 MG PO DAILY Rosuvastatin Calcium (Crestor), 20 MG PO HS Spironolactone (Aldactone), 25 MG PO DAILY Discharge Statement: "Patient was advised to return to the ER or call 911 if any headaches, dizziness, shortness of breath, chest pain, abdominal pain, bleeding, fevers, or worsening of medical condition. Patient was counseled about treatment plan, medications, possible side effects, patientverbalized understanding. All questions were answered to the best of my ability. This discharge took greater then 30 minutes in planning, reviewing documentation, counseling the patient, and discussing with other team members." ASSESSMENT ASSESSMENT Assessment Date of Service: Jun 22, 2025 Billing Provider: FERCHO SHARMA MD Common Visit Codes: 68956-LFS/OBS DISCH DAY >30min FERCHO SHARMA MD Jun 22, 2025 09:52
[2025-06-22 10:29] VITALS: BP 140/92; PULSE 74; RESP 16; TEMP 97.6; O2SAT 98
== END 2025-06-22 12:15 | disposition home or self-care (01) | DRG 281 ==
LOC: EDBD 06:28 → EDUNIT# 06:28 → ER 06:28 → OVERFLOW 10:07 → TELE-WESTW 21:32
PROVIDERS: ADMIT Internal Medicine Geriatric Medicine; ATTEND Internal Medicine Geriatric Medicine
PROC: 4A023N7 Measurement of Cardiac Sampling and Pressure, Left Heart, Percutaneous Approach (ICD-10-PCS; principal; 2025-06-21)
PROC: B211YZZ Fluoroscopy of Multiple Coronary Arteries using Other Contrast (ICD-10-PCS; 2025-06-21)
DX: I21.4 Non-ST elevation (NSTEMI) myocardial infarction (principal); I13.0 Hypertensive heart and chronic kidney disease with heart failure and stage 1 through stage 4 chronic kidney disease, or unspecified chronic kidney disease; I50.22 Chronic systolic (congestive) heart failure; I25.10 Atherosclerotic heart disease of native coronary artery without angina pectoris; Z68.37 Body mass index [BMI] 37.0-37.9, adult; E66.9 Obesity, unspecified; E11.22 Type 2 diabetes mellitus with diabetic chronic kidney disease; E78.5 Hyperlipidemia, unspecified; N18.9 Chronic kidney disease, unspecified; Z87.891 Personal history of nicotine dependence; Z79.899 Other long term (current) drug therapy; Z79.84 Long term (current) use of oral hypoglycemic drugs; Z79.82 Long term (current) use of aspirin; Z79.02 Long term (current) use of antithrombotics/antiplatelets; Z68.35 Body mass index [BMI] 35.0-35.9, adult
CPT/HCPCS: 36415; 71045; 80048; 80061; 81001; 83036; 83735; 83880; 84484; 85025; 85610; 93005; 93458; 96372; 99152; G0378; J2250; Q9967